=== PATIENT | female | born 1940 | race Caucasian/White ===

== ENCOUNTER 2016-06-13 16:43 | Inpatient (IN) | payer OTHER ==
[2016-06-13 18:19] LABS: MANUAL DIFF NEEDED? NO
[2016-06-13 18:21] LABS: BASO% 0.3 % (0.0-0.8); EOS# 0.29 X1000 (0.0-0.7); EOS% 1.9 % (0.0-10.0); HEMATOCRIT 46.8 % (37.0-47.0); HEMOGLOBIN 15.7 g/dL (12.0-16.0); IMM GRAN# 0.13 X1000 (0.0-0.04); IMM GRAN% 0.8 % (0.0-0.5); LYMPH% 23.7 % (20.5-51.1); MCH 29.7 PG (27-31); MCHC 33.5 g/dL (33-37); MCV 88.6 FL (81-99); MONO# 2.14 X1000 (0.11-0.59); MONO% 13.7 % (1.7-9.3); MPV 10.8 FL (7.4-10.4); NEUT% 59.6 % (42.2-75.2); PLT 180 X1000 (130-400); RBC 5.28 XMIL (4.2-5.4)
[2016-06-13 18:45] LABS: AGAP 13; ALBUMIN 4.3 g/dL (3.5-5.0); ALKALINE PHOSPHATASE 113 U/L (32-104); BUN 23 mg/dL (8-22); CALCIUM 10.2 mg/dL (8.8-10.2); CHLORIDE 99 mmol/L (98-107); COSMO 276; GOT 130 U/L (10-30); GPT 137 U/L (10-36); POTASSIUM 4.1 mmol/L (3.5-5.1); SODIUM 136 mmol/L (136-145); TCO2 25 mmol/L (25-35); TOTAL PROTEIN 8.1 g/dL (6.3-8.3)
[2016-06-13] MEDS ORDERED: APRESOLINE IV PRN (21:06)
[2016-06-13] MEDS ORDERED: TYLENOL PO ONE (22:40)
[2016-06-13] MEDS ORDERED: TUMS PO ONE (22:40)
[2016-06-13] MEDS ORDERED: ZOFRAN IV PRN (22:47)
[2016-06-13] MEDS ORDERED: NS 1,000 ML IV SCH (23:00)
[2016-06-13] MEDS: TYLENOL PO PRN (23:04)
[2016-06-13] MEDS ORDERED: MOTRIN PO PRN (23:11)
--- NOTE | 2016-06-14 00:37 | HISTORY AND PHYSICAL ---
CHIEF COMPLAINT: Shortness of breath, cough, malaise. HISTORY OF PRESENT ILLNESS: This is a 76-year-old female, who came in for direct admit today. She has been sick for about a week. She has a cough, does not feel well, poor appetite and nausea. She came in for evaluation, was seen last week and treated for bronchitis pneumonia with antibiotics and steroids, and she has not done well. Steroids have caused a lot of discomfort and all kinds issues there. She came back in today for re-evaluation, was not improved, felt to have a possible pneumonia, and was directly admitted for failing outpatient therapy for pneumonia. PAST MEDICAL HISTORY: Hypertension, otherwise negative. PAST SURGICAL HISTORY: 1. Total hip replacement x2. 2. Appendectomy. 3. Hysterectomy. FAMILY HISTORY: Reviewed noncontributory. SOCIAL HISTORY: No tobacco or ethanol. ALLERGIES: Toradol. MEDICATIONS: She is just on tramadol and Prilosec. PHYSICAL EXAMINATION: VITAL SIGNS: Blood pressure 190/88, heart rate of 103, respiratory rate of 21, temperature 98.7, 98% on room air. GENERAL: A well-developed female, appears ill, uncomfortable. NECK: Supple. CARDIOVASCULAR: Regular rate and rhythm. No murmurs, gallops, or rubs. PULMONARY: Bilateral breath sounds. Clear to auscultation. No wheezes. GI: Abdomen was soft, nontender, nondistended. Bowel sounds are positive. EXTREMITIES: No clubbing or cyanosis. LYMPHATICS: No peripheral edema. NEUROLOGICAL: Nonfocal. LABORATORY DATA: White count of 15,000. Chemistry showed a BUN and creatinine of 23 and 0.9, with an elevated AST and ALT of 130 and 137. PROBLEM LIST: 1. Presumed pneumonia, versus bronchitis. We will continue treatment with empiric Levaquin, breathing treatments as needed. Follow up on chest x-ray results tomorrow. 2. Hypertension. We will initiate Cozaar and follow. Fairly uncontrolled currently. 3. Elevated liver enzymes, unclear source. We will continue to monitor that. She does not clearly have abdominal pain, but she does not feel well generally speaking. 4. If unimproved liver functions, we will consider right upper quadrant ultrasound.
[2016-06-14] MEDS: LEVAQUIN 750 MG/D5W 150 ML IV SCH ×2 (01:08→23:39)
[2016-06-14] MEDS ORDERED: ROBITUSSIN PO ONE (04:55)
[2016-06-14] MEDS: PRILOSEC PO SCH ×2 (05:40→06:20)
[2016-06-14] MEDS: TYLENOL PO PRN (05:40)
[2016-06-14 06:15] LABS: HEMATOCRIT 44.3 % (37.0-47.0); MCH 30.1 PG (27-31); MCHC 33.9 g/dL (33-37); MCV 88.8 FL (81-99); MPV 11.5 FL (7.4-10.4); RBC 4.99 XMIL (4.2-5.4)
[2016-06-14 06:30] LABS: CALCIUM 9.8 mg/dL (8.8-10.2)
[2016-06-14 06:36] LABS: ALBUMIN 3.7 g/dL (3.5-5.0); ALKALINE PHOSPHATASE 92 U/L (32-104); DIRECT BILIRUBIN < 0.20 mg/dL (0.00-0.20); GOT 102 U/L (10-30); GPT 113 U/L (10-36); TOTAL PROTEIN 6.9 g/dL (6.3-8.3)
--- NOTE | 2016-06-14 08:52 | Diag Imaging Result Document ---
PROCEDURE NAME: CHEST-2 VIEWS - 06/13/2016 CHEST, TWO VIEWS: INDICATION: Possible pneumonia. COMPARISON: 06/04/2014. FINDINGS: There is cardiomegaly. There is a stable pulmonary nodule, right lower lung zone. The pulmonary vasculature is not congested. No acute infiltrate or effusion is identified. there is a significant kyphosis with vertebral body compression fractures again noted. IMPRESSION: 1. Cardiomegaly. 2. Evidence of previous granulomatous infection. 3. Stable right lower lung zone pulmonary nodule.
[2016-06-14] MEDS ORDERED: COZAAR PO SCH (09:00)
[2016-06-14] MEDS ORDERED: ULTRAM PO SCH (09:00)
[2016-06-14 14:12] LABS: URINE CULTURE PL NEEDED? NO; URINE SOURCE CLEAN CATCH
[2016-06-14 14:24] LABS: BILIRUBIN URINE NEGATIVE (NEGATIVE); BLOOD URINE TRACE (NEGATIVE); CLARITY CLEAR (CLEAR); COLOR YELLOW; GLUCOSE URINE NEGATIVE (NEGATIVE); LEUKOCYTES URINE NEGATIVE (NEGATIVE); NITRITE URINE NEGATIVE (NEGATIVE); PROTEIN URINE NEGATIVE (NEGATIVE); SP GRAVITY URINE 1.015; UROBILINOGEN URINE NORMAL
[2016-06-14 14:25] LABS: URINE EPITHELIAL CELLS <10 /HPF (<10); URINE RBC <10 /HPF (<10); URINE WBC <10 /HPF (<10)
[2016-06-14] MEDS ORDERED: NS 500 ML IV SCH (19:00)
--- NOTE | 2016-06-14 21:17 | PROGRESS NOTE ---
[facility]
[2016-06-14] MEDS ORDERED: BLISTEX MEDICATED BERRY LIP BALM TOP PRN (23:47)
[2016-06-15] MEDS: DUONEB (A & A) INH PRN ×3 (00:36→14:47)
[2016-06-15] MEDS: PRILOSEC PO SCH (06:01)
[2016-06-15 06:20] LABS: HEMATOCRIT 44.4 % (37.0-47.0); HEMOGLOBIN 14.7 g/dL (12.0-16.0); MCH 29.6 PG (27-31); MCHC 33.1 g/dL (33-37); MCV 89.5 FL (81-99); MPV 11.4 FL (7.4-10.4); RBC 4.96 XMIL (4.2-5.4)
[2016-06-15 06:35] LABS: ALBUMIN 3.7 g/dL (3.5-5.0); CALCIUM 9.3 mg/dL (8.8-10.2); MAGNESIUM 1.7 mg/dL (1.5-2.7); POTASSIUM 4.1 mmol/L (3.5-5.1); TOTAL BILIRUBIN 0.5 mg/dL (0.20-1.00); TOTAL PROTEIN 6.9 g/dL (6.3-8.3)
--- NOTE | 2016-06-15 08:02 | PROGRESS NOTE ---
DATE: 06/15/2016 SUBJECTIVE: Patient states she is feeling better. Still did not sleeping well. Has been getting out of bed a little bit better. Her tiredness and fatigue are a little bit better. Asking to go home. OBJECTIVE: Vital signs: Temperature 98 degrees, pulse 103, respiratory rate 18, BP 141/71, saturation 100% on room air. General: Patient is well-developed, well-nourished. Currently in no respiratory distress. She is awake and alert. Neck: Supple. Abdomen: Soft, nondistended. Extremities: Moves all extremities. LABS: Reviewed. WBC is 13, AST 73, ALT 99. ASSESSMENT: 1. Acute hepatitis, improving. We will check an abdominal ultrasound. 2. Hypertension. Will add Toprol to her Cozaar. 3. Supraventricular tachycardia. Add Toprol. PLAN: If her abdominal ultrasound is better and she is able to ambulate, we will discharge home later this afternoon.
--- NOTE | 2016-06-15 08:03 | PROGRESS NOTE ---
DATE: 06/14/2016 SUBJECTIVE: The patient states she is hurting all over. Did not sleep well. Denies any focal tenderness. States that she is tired and fatigued. Having difficulty getting out of bed. Describes a poor appetite. Denies any current cough or congestion. PHYSICAL EXAMINATION: Vital Signs: Temperature 98, pulse 115-96, respiratory rate 20, BP 159/75. General: Patient is a well-developed female who is currently in no respiratory distress. She is awake, alert. Neck: Supple. CV: Regular rate. Chest: Clear. Abdomen: Soft. Extremities: Moves all extremities. LABS: Reviewed. ASSESSMENT: 1. Leukocytosis. Continues to improve. White count currently 12. 2. Hepatitis of uncertain etiology. 3. Pneumonia. Continue antibiotics. 4. Hypertension. We will add Cozaar.
[2016-06-15 09:52] LABS: HEPATITIS PROFILE ACUTE SEE COMMENTS (())
[2016-06-15] MEDS: COZAAR PO SCH ×2 (11:29→11:43)
[2016-06-15] MEDS: TOPROL XL PO SCH ×2 (11:31→11:42)
[2016-06-15] MEDS: TYLENOL PO PRN (14:14)
[2016-06-15 15:50] VITALS: BP 139/60
--- NOTE | 2016-06-15 15:54 | Diag Imaging Result Document ---
PROCEDURE NAME: US ABDOMEN-COMPLETE - 06/15/2016 COMPLETE ABDOMINAL ULTRASOUND: COMPARISON: None available. FINDINGS: The gallbladder appears normal with no stones, wall thickening, or pericholecystic fluid. The common bile duct is normal in diameter. Sonographic Cobian's sign was reported to be negative. The liver appears diffusely echogenic suggesting hepatic steatosis. Portal venous flow is hepatopetal. No discrete hepatic mass is identified. The liver is normal in size. The spleen, aorta, and IVC are grossly unremarkable. There is nonspecific mild heterogeneity involving the pancreas, but there is no surrounding fluid collection and no discrete pancreatic mass is identified. The kidneys are grossly unremarkable. IMPRESSION: 1. Suggestion of hepatic steatosis. 2. Nonspecific mild heterogeneity of the pancreas as described.
--- NOTE | 2016-06-15 16:47 | DISCHARGE SUMMARY ---
ADMISSION DIAGNOSES: 1. Pneumonia versus bronchitis. 2. Hypertension. 3. Elevated liver enzymes with an unclear source. DISCHARGE DIAGNOSES: 1. Pneumonia. 2. An acute hepatitis, improved. 3. Hypertension. 4. Supraventricular tachycardia. SUMMARY OF FINDINGS: This is a 76-year-old female, who presented to [facility] with complaints of feeling sick for about a week. She was sent as a direct admit from her primary care physician's office. Having a cough, poor appetite and nausea. She was seen last week by her primary care physician and treated for a bronchitis pneumonia with antibiotics and steroids, but continued to not feel well. Came back on the day of admission for re-evaluation and, due to the failed outpatient treatment, it was felt that she needed treatment for pneumonia inpatient. She was admitted. Placed on Levaquin and DuoNebs. She has had some elevation in her heart rate most likely from the DuoNebs and her blood pressure has been slightly elevated, so we added a Toprol 25 mg p.o. daily. Her white blood cell count is 13.12 today. She has remained afebrile for greater than 24 hours. She had some elevation in her liver functions; they have trended down, and we did an abdominal ultrasound today that showed suggestion of hepatic steatosis and a nonspecific mild heterogeneity of the pancreas as described, but it is felt that she can safely be discharged home. She has ambulated small distances in the room without any difficulty. DISCHARGE MEDICATIONS: She will be given a prescription for Levaquin 750 mg p.o. daily for 7 days no refills, and a prescription for the Toprol 25 mg p.o. daily #30 with 2 refills. She will also continue her home medications of Prilosec 20 mg daily, calcium 1000 mg p.o. daily, multivitamin p.o. daily, and tramadol 50 mg p.o. q. 8 hours p.r.n. FOLLOWUP: She will follow up with her primary care physician in 1-2 weeks. All discharge instructions have been reviewed with the patient. She verbalized understanding. TIME SPENT: 35 minute discharge. Dictated by JAVI Salas for Ming Boyd MD
== END 2016-06-15 18:59 | disposition home or self-care (01) | DRG 194 ==
LOC: P.ED 16:43 → OBSVTOIN 18:46 → P.MEDSURG 18:46
PROVIDERS: ATTEND Family Medicine
DX: J18.9 Pneumonia, unspecified organism (principal); B17.9 Acute viral hepatitis, unspecified; I47.1 Supraventricular tachycardia; I10 Essential (primary) hypertension; Z96.643 Presence of artificial hip joint, bilateral; Z79.899 Other long term (current) drug therapy
CPT/HCPCS: 36415; 71020; 76700; 80048; 80053; 80074; 80076; 81001; 83735; 85025; 85027; 87040; 94640; 94761; 99285; J0360; J7030

== ENCOUNTER 2018-07-20 22:29 | Inpatient (IN) ==
[2018-07-20] MEDS ORDERED: ZOFRAN IV ONE (23:40)
[2018-07-20] MEDS ORDERED: NS 1,000 ML IV ONE (23:40)
[2018-07-21 01:30] LABS: BASO# 0.07 X1000 (0.0-0.2); BASO% 0.5 % (0.0-0.8); EOS# 0.28 X1000 (0.0-0.7); EOS% 1.9 % (0.0-10.0); HEMATOCRIT 48.8 % (37.0-47.0); IMM GRAN# 0.03 X1000 (0.0-0.04); IMM GRAN% 0.2 % (0.0-0.5); LYMPH% 24.7 % (20.5-51.1); MCH 29.4 PG (27-31); MCHC 32.8 g/dL (33-37); MCV 89.7 FL (81-99); MONO# 1.44 X1000 (0.11-0.59); MONO% 9.6 % (1.7-9.3); MPV 11.8 FL (7.4-10.4); NEUT# 9.49 X1000 (1.4-6.5); NEUT% 63.1 % (42.2-75.2); PLT 183 X1000 (130-400); RBC 5.44 XMIL (4.2-5.4); WBC 15.01 X1000 (4.8-10.8)
[2018-07-21 01:57] LABS: AGAP 18; BUN 15 mg/dL (8-22); CALCIUM 9.2 mg/dL (8.8-10.2); CHLORIDE 100 mmol/L (98-107); COSMO 279; CREATININE 0.8 mg/dL (0.5-0.9); ESTIMATED GFR > 60; GLUCOSE 117 mg/dL (70-104); POTASSIUM 4.8 mmol/L (3.5-5.1); SODIUM 139 mmol/L (136-145); TCO2 21 mmol/L (25-35)
[2018-07-21 02:45] LABS: URINE SOURCE CATH
[2018-07-21 02:47] LABS: BILIRUBIN URINE NEGATIVE (NEGATIVE); BLOOD URINE NEGATIVE (NEGATIVE); COLOR YELLOW; GLUCOSE URINE NEGATIVE (NEGATIVE); KETONE URINE NEGATIVE (NEGATIVE); LEUKOCYTES URINE NEGATIVE (NEGATIVE); NITRITE URINE NEGATIVE (NEGATIVE); PH URINE 6.5; PROTEIN URINE TRACE mg/dL (NEGATIVE); SP GRAVITY URINE 1.002; TURBIDITY URINE CLEAR (CLEAR); UROBILINOGEN URINE NORMAL (NORMAL)
[2018-07-21 02:49] LABS: UR EPITHELIAL CELLS <10 /HPF (<10); URINE BACTERIA NEGATIVE /HPF; URINE RBC <10 /HPF (<10); URINE WBC <10 /HPF (<10)
[2018-07-21] MEDS ORDERED: ROCEPHIN 1 GM in NS 50 ML IV ONE (03:08)
[2018-07-21] MEDS ORDERED: MORPHINE IV ONE ×2 (03:41→04:59)
[2018-07-21] MEDS ORDERED: MORPHINE ONE (03:44)
[2018-07-21] MEDS ORDERED: ASPIRIN EC PO ONE (04:27)
[2018-07-21] MEDS ORDERED: ZOFRAN IV PRN (05:03)
[2018-07-21] MEDS ORDERED: CATAPRES PO PRN (05:03)
[2018-07-21] MEDS ORDERED: OXY IR PO PRN (05:03)
[2018-07-21] MEDS ORDERED: MORPHINE IV PRN (05:03)
[2018-07-21] MEDS: TYLENOL PO SCH ×3 (05:52→20:49)
[2018-07-21] MEDS: NS 1,000 ML IV SCH ×2 (05:53→13:37)
[2018-07-21] MEDS: DUONEB (A & A) INH SCH ×3 (07:38→22:42)
--- NOTE | 2018-07-21 08:22 | Diag Imaging Result Doc PS360 ---
HIP 1 VIEW LEFT - 07/21/2018 INDICATION: left hip pain TECHNIQUE: COMPARISON: 12/21/2017 FINDINGS: Stable left total hip arthroplasty. Alignment is anatomic. No hardware fracture or loosening. Stable old deformities of the left pubic rami. IMPRESSION: No acute disease or change from prior. Electronically signed by Enrique Mckeon 07/21/2018 8:19 AM
--- NOTE | 2018-07-21 08:31 | Diag Imaging Result Doc PS360 ---
CHEST-PORTABLE - 07/21/2018 INDICATION: elevated WBC COMPARISON: 07/05/2018 FINDINGS: There are stable surgical sutures in the right lung base. No infiltrates or edema. Heart size and pulmonary vascularity is normal. IMPRESSION: No acute disease. Electronically signed by Enrique Mckeon 07/21/2018 8:29 AM
--- NOTE | 2018-07-21 08:43 | Diag Imaging Result Doc PS360 ---
SHOULDER 1 VIEW LEFT - 07/20/2018 INDICATION: fall TECHNIQUE: COMPARISON: None FINDINGS: There is no obvious fracture or dislocation. IMPRESSION: No obvious fracture or dislocation. Electronically signed by Enrique Mckeon 07/21/2018 8:40 AM
--- NOTE | 2018-07-21 09:03 | Diag Imaging Result Doc PS360 ---
CT HEAD/C-SPINE W/O CONTRAST - 07/20/2018 INDICATION: fall COMPARISON: None FINDINGS: Head CT: The ventricles and sulci are normal in size and contour. No intracranial mass or hemorrhage. There is mild periventricular white matter chronic microvascular disease. The skull is intact. There is some mild sinusitis of the right sphenoid sinus. Cervical spine: Alignment is anatomic. Vertebral body heights and intervertebral disc spaces are preserved. There is extensive facet degeneration. No central canal stenosis. No fracture or subluxation. IMPRESSION: No acute injury. This exam was performed using automated exposure control, adjustment of mA or kV according to patient size, and/or use of iterative reconstruction technique Electronically signed by Enrique Mckeon 07/21/2018 9:01 AM
--- NOTE | 2018-07-21 09:10 | HISTORY AND PHYSICAL ---
Patient of Dr. David Hartmann, Oncologist in [place]. Patient of JAVI Alcala REASON FOR ADMISSION: Unexplained fall last night. HISTORY OF PRESENT ILLNESS: Ms. Vielka Romero is an 78-year-old woman with diagnosed unresectable right lung cancer, COPD, peripheral arterial disease, hypertension, who reports falling onto the floor with no warning. She was brushing her teeth and said that she just found herself lying on her left side on the floor. She managed to crawl to the phone and call family members who in turn called EMS. She denies any prodromal symptoms, i.e., palpitations, chest pain, shortness of breath, headache, visual problems. Her current complaint at this point in time is pain on her left shoulder and left hip. Her [id number] who is at bedside says she has noticed that her sister may be weaker on her left side regardless of the pain that she is experiencing. She did not notice any slurred speech or facial drooping when she got to the house. The patient reports that she had urinated on herself. REVIEW OF SYSTEMS: The patient admits to having worsening shortness of breath over the last 1 year since her diagnosis of lung cancer. She also has chronic constipation and her yrtrqo-jw-eve reports that her short-term memory has slowly been getting progressively worse over the last 1 year. Otherwise, the patient denies any dysuria, any new focal neurological complaints. No fever but she has a chronic cough that is nonproductive. She states that chronic cough started when she underwent bronchoscopy to get a tissue biopsy of the mass in her lung. The patient is barely able to stand. We do not know if she is weak or it is because of pain. Otherwise 12-system review was done. Positive findings per HPI. ALLERGIES: Prednisone and Toradol. HOME MEDICATIONS: Her medication list is pending reconciliation. PAST MEDICAL HISTORY: The aforementioned lung cancer. She was seen in the ER 2 weeks ago for chest pain and shortness of breath and a CTA of the chest was done which showed no PE at that time. It did show the lung mass. FAMILY HISTORY: Notable for diabetes, COPD, stroke in first-degree relatives. No heart disease. SOCIAL HISTORY: She lives alone. She does not smoke or do illicit drugs. LABORATORY DATA: White count 15,000. Hemoglobin and hematocrit 16 and 48, platelets 183,000 with normal differential. BUN 15, creatinine 0.8, glucose 117. Troponin is negative. Urinalysis is essentially benign; specific gravity is 1.002. Chest film does show tiny right lower lobe infiltrate. Head CT reviewed by me shows no overt mass effect or area of infarction or bleed. Hip x-ray does not show any dislocation or fracture of the left prosthesis. Right shoulder x-ray shows no dislocation or fracture of the left humeral head. PHYSICAL EXAMINATION: VITAL SIGNS: Initial blood pressure was 126/96. Current blood pressure is 220/110. Respiratory rate is 15. Temperature is 98. Pulse is 100. Saturation is 100% on room air. GENERAL: Elderly woman who is in acute distress with pain in her back and left side. She is alert and oriented to person, place and time with very anxious affect. Mood appears to be normal. She is hard of hearing on the left side. HEENT: Head is otherwise normocephalic and atraumatic. Eyes: PERRL. EOMI. She is anicteric and not pale. ENT and oropharynx examination grossly normal except for mild cyanotic changes in her lips. NECK: Supple. No JVD, carotid bruits, thyromegaly. CHEST: Decreased air entry in both lung judd. CARDIOVASCULAR: First and second heart sounds heard. No gallops, murmurs or rubs. Rhythm is regular. ABDOMEN: Protuberant and soft. No focused tenderness. No mass or megaly. Bowel sounds are hypoactive. RECTAL: No examination at this time. EXTREMITIES: The patient has good volume pulse, regular and symmetrical in all extremities distally. No edema. No peripheral cyanosis. Her left lower extremity seems to be internally rotated but not shortened. NEUROLOGIC: The patient is able to abduct shoulder to about 90 degrees maximum. She is barely able to flex her hip beyond 30 degrees. She attributes these limited range of motions to pain in these joints, not weakness. Cranial nerves II-XII are grossly intact. Speech appears to be fluent. SKIN: Intact with no breakdown, lesions or erythema. Turgor appears to be good. MUSCULOSKELETAL: Difficult to assess on the left side due to patient's pain. She has slight kyphosis of her thoracic spinal column. ASSESSMENT: 1. Syncope versus cerebrovascular accident versus metastatic brain lesion. 2. Lung cancer. 3. Leukocytosis, probably reactive. 4. Hypertension. 5. Chronic obstructive pulmonary disease. 6. Peripheral arterial disease. 7. Early onset dementia. PLAN: The patient is definitely going to be admitted with goals to be placed in a [facility] facility due to the fact that this patient can barely sit up by herself. Her cognitive function is declining. She is in intractable pain. Imaging studies to rule out metastatic brain lesion, i.e., the MRI and a possible CDA. Early CDA will be ordered. The patient cannot tell us how she got to the floor and this is the reason why I am a little worried about her situation. She is not pretty convinced that she passed out at all. The patient will be treated symptomatically regarding her pain. She will also be started on a bowel regimen to prevent constipation. DVT prophylaxis will be instituted. Depending on what her MRI shows, further modification of her treatment will be instituted. She will be on electrical machine builder to evaluate for possible arrhythmias causing this event. For some reason EKG was ordered but has not been taken at this point in time, although her rhythm was normal. The patient's blood pressure is elevated. I do not know if it due to her being in anxious or in pain. It is a little worrisome for possibility of a cerebrovascular accident if it remains high. cc: Yesika Lawson MD
[2018-07-21] MEDS: LOVENOX SUBQ SCH (09:29)
[2018-07-21] MEDS: MIRALAX PO SCH ×3 (09:29→20:49)
--- NOTE | 2018-07-21 12:17 | PROGRESS NOTE ---
DATE: 07/21/2018 SUBJECTIVE: This morning, Ms. Neville refers to be fairly okay, very fluent in speech. Occasionally, she does exhibit signs of memory gaps. She came in complaining that she is not able to move her left side. Briefly, Ms. Neville got admitted early this morning. She thinks she might have probably been brushing her teeth last night when she just forgot what happened to her. She found herself on the floor and tried crawling to her bedside and she was able to call her brother 1st and family members came after a couple of minutes to assist her. This morning she does refer that she is tired. OBJECTIVE: Vital signs: Blood pressure is 188/77, pulse is 88, respirations 16, temperature 97.3 degrees. General: Ms. Neville is an 78-year-old elderly female, extremely nice. She is in bed, no distress, mucosa is pink, slightly dry. Anicteric and acyanotic. Neck: Supple. No JVD and no carotid bruit. Respiratory System: There is good air entry bilaterally. No crepitations. No rhonchi. Cardiovascular: Regular rate and rhythm. No murmurs, no rubs, no gallops. Abdomen: Soft, nontender. Bowel sounds present. Extremities: No pedal edema. Distal pulses are present. CASE FITTER: Patient is awake, alert, oriented to person, but disoriented to place and time. Speech is fluent. She does have issues with immediate memory. Power is about 5/5 on the right side and it is about 3/5 on the left side, both upper and lower extremities. Plantar reflexes are both downward going. LABORATORY DATA: WBC is 15.01, hemoglobin is 16, platelet count of 183,000. Chemistry is reviewed, unremarkable. DIAGNOSTIC DATA: Initial CT scan of the head and cervical spine showed no acute injury. Left shoulder x-ray showed no obvious fracture or dislocation. A chest x-ray shows no acute abnormality. A hip showed no acute problem. I do not see any EKG. ASSESSMENT: 1. 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 We will do MRI and a complete stroke workup hopefully Sunday. We will also get Neurology to see her. I have ordered a lipid level and will start the patient on low-dose aspirin and statin. 2. Clinical volume depletion with hemoconcentration on labs. The patient is on IV fluids. We will continue that. 3. History of right lung cancer. Patient is currently not on any adjuvant therapy. She has appointment to follow up with her oncologist on the of next month. 4. History of COPD, currently not in exacerbation. 5. 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 6. Hypertension. For now, we will allow for permissive hypertension in the face of suspected CVA. cc: Bakari Winslow MD
[2018-07-21] MEDS: CRESTOR PO SCH (13:36)
--- NOTE | 2018-07-21 17:06 | ECHO REPORT ---
ORDER DATE: 07/21/2018 ECHOCARDIOGRAPHIC MEASUREMENTS: 1. Interventricular septum 1.3, left ventricular posterior wall 1.2, diastolic diameter 4, left ventricular systolic diameter 2.1, left atrium 3.6, aorta 2.8. 2. There is mild left atrial enlargement. 3. Normal left ventricular cavity size. Estimated ejection fraction of 65 to 70%. There is hyperdynamic systolic function. There is diastolic dysfunction. 4. Anterior mitral valve leaflet is normal, posterior mitral valve leaflet has restricted motion with moderate mitral annular calcification. 5. Aortic valve leaflets are trileaflet, sclerosed. 6. Tricuspid valve was normal. 7. There is no aortic stenosis. There is aortic sclerosis associated with mild aortic regurgitation. 8. There is mild mitral regurgitation. 9. There is mild tricuspid regurgitation. Peak velocity across the tricuspid valve was 2.4 m/sec. 10. There is no pericardial effusion or obvious intracardiac mass or thrombus seen. 11. There is left atrial enlargement. 12. Peak inflow velocity across the mitral valve was 1.2 m/sec. There is mild restriction of mitral valve movement, however there is no obvious stenosis noted. cc: MD Bakari Casillas MD
--- NOTE | 2018-07-22 00:51 | PROVIDER DOCUMENTATION ---
This chart was entered by Alicja Moss Scribe, acting as scribe for Saturnino Ayers MD. HPI-General Adult - General Chief Complaint: Fall Stated Complaint: fall Time Seen by Provider: 07/20/18 23:10 Source: patient, family Allergies/Adverse Reactions: Patient Allergies Allergy/AdvReac Type Severity Reaction Status Date / Time ketorolac tromethamine * Allergy NAUSEA/VOMI Verified 07/21/18 05:03 [From Toradol] TING prednisone AdvReac Unknown Verified 07/21/18 05:03 Home Medications: Home Medication List Medication Instructions Recorded Confirmed Last Taken Type Gabapentin 100 mg PO TID 07/21/18 07/21/18 Unknown History Nitrofurantoin Macrocrystal 100 mg PO BID 07/21/18 07/21/18 Unknown History [Nitrofurantoin] Tramadol [Ultram] 50 mg PO TID 07/21/18 07/21/18 Unknown History - History of Present Illness -Gen Adult Nature of Presenting Problems: 78 yof presents to ED by EMS c/o fall at home. Pt denies hitting head or losing consciousness. Pt has hx of lung cancer and HTN. Review of Systems - Adult - REVIEW OF SYSTEMS - ADULT Constitutional: denies: chills, fever Eyes: reports: no symptoms reported Ears, Nose, Mouth & Throat: reports: no symptoms reported Cardiovascular: reports: no symptoms reported Respiratory: reports: no symptoms reported Gastrointestinal: reports: no symptoms reported Genitourinary: reports: no symptoms reported Musculoskeletal: reports: see HPI, joint pain (left shoulder) Integumentary: reports: no symptoms reported Neurological: reports: no symptoms reported Psychiatric: reports: no symptoms reported Allergic/Immunologic: reports: no symptoms reported Past History - Adult - PAST MEDICAL HISTORY-ADULT Review of Records: reports: Old Records Reviewed, Nursing Assessment Review, Medications Reviewed Major Childhood Illnesses: reports: denies history Cardiovascular: reports: HTN Respiratory: reports: cancer Gastrointestinal: reports: denies history Obstetrical/Gynecological: reports: denies history Genitourinary: reports: denies history Musculoskeletal: reports: arthritis Neurological: reports: denies history Endocrine/Immune: reports: denies history Other Conditions: reports: denies history - PRIOR SURGERIES/PROCEDURES Surgical/Procedure History: reports: appendectomy, cholecystectomy, tonsillectomy, joint replacement (total hip) - PRIOR HOSPITALIZATIONS Prior Hospitalizations: reports: none - IMMUNIZATION STATUS Childhood Immunizations: See Nurse Assessment Flu Vaccine: See Nurse Assessment - FAMILY HISTORY Family History: reviewed, not pertinent - SOCIAL HISTORY Smoking: quit greater than 1 year Physical Exam-General - PHYSICAL EXAM-ADULT Initial Vital Signs Reviewed: Yes - CONSTITUTIONAL General Appearance: alert, no apparent distress, other (unable to sit up herself in the bed without help.) - EYES Eyes: PERRL/EOMI, pink conjunctivae - HEAD, EARS, NOSE, MOUTH & THROAT HENMT: normocephalic/atraumatic, other (slightly dry mucus membranes). negative : moist mucous membranes - NECK Neck: non-tender, full range of motion - RESPIRATORY Respiratory: chest non-tender, lungs clear, normal breath sounds. negative: crackles, rales, rhonchi - CARDIOVASCULAR Cardiovascular: normal peripheral pulses, regular rate, rhythm, no edema. negative: bradycardia, tachycardia - GASTROINTESTINAL (ABDOMEN) Abdominal Exam: normal bowel sounds, non tender, soft. negative: rigid, tenderness - MUSCULOSKELETAL Back Exam: normal inspection, no vertebral tenderness Extremity: normal capillary refill, other (tender in left shoulder joint) - SKIN Integumentary: normal color, normal turgor, warm/dry - NEUROLOGIC Neurologic: grossly normal. negative: facial droop - PSYCHIATRIC Psych/Mental Status: normal mood/affect, normal thought content, normal thought process, oriented x 3 Progress - PLAN OF CARE/RESULTS Progress/Plan/Lab Results: Orders Category Date Time Status CT HEAD/C-SPINE W/O CONTRAST [CT] Stat Exams 07/20/18 22:39 Taken SHOULDER 1 VIEW LEFT [RAD] Stat Exams 07/20/18 22:39 Taken Result Diagrams: 07/21/18 00:25 07/21/18 00:25 - CT/MRI 1 CT Study: Cervical Spine (no acute cervical spine fracture identified. multilevel bilateral degenerative facet disease.), Head (no acute intracranial hemorrhage or process age related cerebral volume loss right sphenoid sinusitis) Impression: Abnormal - CONSULTS/PCP/HOSPITALIST Notification #1 *Consult/PCP/Hospitalist*: Dr. Lawson Time Discussed: 03:17 Consult Disposition: Admit (accepted.) Departure - Departure Date of Disposition Decision: 07/21/18 Time of Disposition Decision: 03:16 DIAGNOSIS: Weakness Leukocytosis Qualifiers: Leukocytosis type: unspecified Qualified Code(s): D72.829 - Elevated white blood cell count, unspecified Fall Qualifiers: Encounter type: initial encounter Qualified Code(s): W19.XXXA - Unspecified fall, initial encounter Disposition: ADMITTED INPATIENT 09 Certified Medical Emergency: Emergent Condition: Stable - Critical Care Note This patient required my direct & personal management of CC.: No Attestation - Physician/ MAGDALENO Attestation Patient care was provided by Advanced Practice Provider:: No The physician spent face to face time with patient:: Yes Advanced Practice Provider documentation review:: Supervising physician onsite and consulted in the evaluation and care of this patient. The physician did have a face to face encounter with the patient. This chart was documented by the indicated scribe, (Alicja Moss Scribe) and accurately reflects the services I performed and decisions made by me, Saturnino Ayers MD, as attested by the provider's signature.
[2018-07-22] MEDS: TYLENOL PO SCH ×5 (05:11→23:06)
--- NOTE | 2018-07-22 07:10 | EKG Report ---
Test Performed on : 07/21/2018 11:57:11 AM Test Reason : Afib Blood Pressure : / mmHG Vent. Rate : 083 BPM Atrial Rate : 083 BPM P-R Int : 218 ms QRS Dur : 128 ms QT Int : 418 ms P-R-T Axes : 044 096 053 degrees QTc Int : 491 ms Sinus rhythm. with 1st degree AV block. Right bundle branch block Possible Inferior infarct , age undetermined Abnormal ECG When compared with ECG of 05-JUL-2018 12:48, (Unconfirmed) Right bundle branch block is now present Confirmed by Ronald Ashraf MD ([id number]) on 07/22/2018 8:53:41 AM
[2018-07-22 07:22] LABS: CHOLESTEROL 168 mg/dL (0-200); HDL 40 mg/dL (45-65); LDL 106 mg/dL; TRIGLYCERIDES 109 mg/dL (35-135); VLDL 22 mg/dL
[2018-07-22 07:25] LABS: CALCIUM 8.7 mg/dL (8.8-10.2); CREATININE 0.9 mg/dL (0.5-0.9); MAGNESIUM 1.9 mg/dL (1.5-2.7); POTASSIUM 4.6 mmol/L (3.5-5.1)
[2018-07-22] MEDS: DUONEB (A & A) INH SCH ×3 (07:39→23:30)
[2018-07-22 08:21] LABS: BASO# 0.04 X1000 (0.0-0.2); BASO% 0.5 % (0.0-0.8); EOS# 0.37 X1000 (0.0-0.7); EOS% 4.7 % (0.0-10.0); HEMATOCRIT 43.7 % (37.0-47.0); HEMOGLOBIN 14.1 g/dL (12.0-16.0); LYMPH# 2.67 X1000 (1.2-3.4); LYMPH% 33.8 % (20.5-51.1); MCH 29.7 PG (27-31); MCHC 32.3 g/dL (33-37); MCV 92.2 FL (81-99); MONO# 0.64 X1000 (0.11-0.59); MONO% 8.1 % (1.7-9.3); MPV 11.1 FL (7.4-10.4); NEUT# 4.18 X1000 (1.4-6.5); NEUT% 52.9 % (42.2-75.2); PLT 143 X1000 (130-400); RBC 4.74 XMIL (4.2-5.4)
[2018-07-22] MEDS: CRESTOR PO SCH (09:45)
[2018-07-22] MEDS: LOVENOX SUBQ SCH (09:45)
[2018-07-22] MEDS: MIRALAX PO SCH ×2 (09:45→23:08)
[2018-07-22] MEDS: ASPIRIN PO SCH (09:45)
--- NOTE | 2018-07-22 12:45 | PROGRESS NOTE ---
DATE: 07/22/2018 SUBJECTIVE: This morning Ms. Neville refers to be feeling a whole lot better. She was able to sit up. The left side weakness seems remarkably improved. She does have some pain to the left shoulder on mobilization. OBJECTIVE: Vital signs: Blood pressure is 145/104, respiration is 15, pulse is 73, temperature 98.0 degrees. General: Ms. Neville is an 78-year-old female. She was sitting up in a chair, no distress. HEENT: Mucosa is pink and moist. Anicteric. Acyanotic. Neck: Supple. Chest: Clear to auscultation. There were no crepitations and no rhonchi. Cardiovascular: Regular rate and rhythm. No murmurs. No rubs. No gallops. Abdomen: Soft, nontender. Bowel sounds present. Extremities: No pedal edema. 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 She seems to have maybe 4- power in the left side and 5/5 in the right side. She does have some tenderness mobilizing the left shoulder. LABS: WBC is 7.90, hemoglobin is 14.1, platelet count of 143,000. Chemistry is also reviewed; it is unremarkable. The patient is still pending an MRI. Echocardiogram shows an ejection fraction of 65 to 70%, no major valvular abnormality. ASSESSMENT: 1. Left-sided weakness, predominantly the upper extremity, seems to have remarkably improved. It appears that this could have been mainly because of pain to the shoulder. However, will wait on the MRI and go from there. The patient could have also had a TIA. 2. Left shoulder pain, likely due to osteoarthritis. A chest x-ray was unremarkable for any fracture. The patient is continuing physical therapy and Tylenol for pain management. 3. Clinical volume depletion with hemoconcentration on labs, improved. 4. History of right lung cancer. The patient is not on any adjuvant therapy. She has an appointment to follow up with her oncologist on August 29. 5. History of chronic obstructive pulmonary disease. Currently not in exacerbation. 6. Hypertension. Will restart the patient on her home medications today. 7. 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 PLAN: So in general, Ms. Neville looks a whole lot better this morning. The weakness that we picked up yesterday does not seem to be there any longer. There is a mild drift of the left upper extremity when she raises both hands, but it appears that it is more of antalgic position than a true myelopathy. We are pending the MRI and then go from there. The patient will eventually need to go to a rehab, which oncology social work has been consulted. cc: Bakari Winslow MD
--- NOTE | 2018-07-22 16:48 | CONSULTATION ---
DATE OF CONSULTATION: 07/22/2018 REASON FOR CONSULTATION: Question of left side weakness. HISTORY OF PRESENT ILLNESS: This is an 78-year-old right-handed female with history of lung cancer, not receiving treatment. This was diagnosed just over a year ago. She also has peripheral vascular disease and hypertension. She presented late Sunday night after falling without definite loss of consciousness. She reports she was standing in the bathroom brushing her teeth. She walked into her bedroom, and the next thing she knew, she was on the floor. She says if she passed out, it was only for a brief second. She does not recall her body hitting the floor though. She was able to crawl over to her bed, grab her phone and dial a family member and ask for help. EMS was called to the house as well. They arrived and brought to the patient to the hospital. She denies any preceding headache, visual changes, focal neurologic weakness. No dizziness or lightheadedness. No chest pain, shortness of breath or palpitations. She does, however, report intermittent sense of heart beating fast in her chest for the 3 days preceding this fall. She had some pain on her left shoulder and arm upon arrival to the emergency department and was not able to use the arm very well initially, possibly due to the pain. Head CT did not show any acute findings. Lab work showed elevated white count of 15, normalized the subsequent day. She reports "passing out" about 5 years ago while standing outside of her house with her dog at 6:00 a.m. in June. She does not recall whether she had symptoms preceding this event as it was so long ago. No other falls or loss of consciousness events. She has no known history of seizure or stroke. No major head injury. She had been eating and drinking her usual amounts. PAST MEDICAL HISTORY: Lung cancer diagnosed just over a year ago. She has not received treatment for this. COPD, hypertension, peripheral vascular disease. SOCIAL HISTORY: She smoked for about 10 years, quit in her mid 20s. No alcohol or illicits. She lives alone in a town home. She does drive. FAMILY HISTORY: No seizures. Positive stroke. ALLERGIES: Listed to Toradol and prednisone. CURRENT MEDICATIONS: Aspirin 81 mg, Crestor 20 mg. She does report taking a couple of pain medications at home on occasion. REVIEW OF SYSTEMS: A balance of 12 was conducted and is otherwise negative except for that detailed in the HPI. PHYSICAL EXAMINATION: Vital signs: Afebrile. Blood pressure was 126/96 on arrival, current 106/86. Pulse typically 70s to 80s. Respirations 18. Saturation 98% on room air. Ms. Neville is supine in bed with head of bed elevated. She is brushing her teeth when I enter the room. She is awake, alert, fully oriented. Follows simple and complex commands. Left, right and digit distinction preserved. No dysarthria. No language disturbance. Pupils are equal, round and reactive to light. Gaze is conjugate. Extraocular movements are full. Visual jdud intact to direct confrontational testing. Face symmetric with equal activation and facial sensation intact. Tongue is midline. Palate elevates symmetrically. She is hard of hearing. Shoulder shrug is full. No drift. Tone appears equal in the limbs. Power is preserved and equal in the limbs. Sensation is symmetric to light touch, temperature and pinprick in the limbs. Rapid alternating movements symmetric. Finger to nose intact. Reflexes are diminished at the ankles, 1+ at the wrist. No clonus. Plantar response is downgoing. DIAGNOSTIC DATA: Head CT and cervical spine CT showing no acute findings or injury. Head CT was personally reviewed. Echocardiogram showing no obvious mass or thrombus. EF of 65% to 70%. Labs with white count of 15 on admission, normalized the subsequent day. Normal sodium, BUN and creatinine. Triglycerides 109, cholesterol 168, LDL is 106, HDL is 40. ASSESSMENT AND PLAN: Fall with possible loss of consciousness. Question of transient left arm weakness vs limitations related to pain. Agree with MRI of the brain, and would perform with and without contrast given her lung cancer diagnosis. I am going to order a routine EEG as well. Further workup pending test results. Thank you for the consultation. cc: Abimbola Silva MD [facility] CENTERCelestino
[2018-07-23] MEDS ORDERED: TYLENOL PO SCH (05:30)
[2018-07-23] MEDS: TYLENOL PO SCH ×2 (06:36→06:38)
[2018-07-23] MEDS: DUONEB (A & A) INH SCH ×3 (07:38→23:25)
[2018-07-23] MEDS: CRESTOR PO SCH (09:00)
[2018-07-23] MEDS: MIRALAX PO SCH ×2 (09:00→23:03)
[2018-07-23] MEDS: LOVENOX SUBQ SCH (09:00)
[2018-07-23] MEDS: ASPIRIN PO SCH (09:00)
--- NOTE | 2018-07-23 09:29 | Diag Imaging Result Doc PS360 ---
EXAM: MRA BRAIN W/O CONTRAST 07/22/2018 HISTORY: stroke TECHNIQUE: 3-D [id number] SPGR fat sat with MIPS COMMENT: There is apparent high-grade stenosis of both the A1 and M1 segments on the left. The A1 segment may actually be occluded with collateral flow through the anterior communicating artery. There is probable small vessel disease in both middle cerebrals and posterior cerebrals distally. There is no evidence of aneurysm. The distal left internal carotid artery is slightly narrowed before it enters the cranium. There are no previous studies available for comparison. IMPRESSION: Significant stenosis and/or occlusion in the A1 segment of the anterior cerebral on the left and stenosis of the proximal middle cerebral. Some Electronically signed by Dipak Harris 07/23/2018 9:26 AM
--- NOTE | 2018-07-23 09:32 | Diag Imaging Result Doc PS360 ---
EXAM: MRA NECK W/CONT 07/22/2018 HISTORY: stroke TECHNIQUE: 3-D axial [id number]-kz-zywuyl SPGR COMMENT: There is no evidence of significant stenosis in the common carotid arteries on either side. There is slight narrowing of the proximal internal carotid artery on the left side, as well as in the distal internal carotid artery just as it enters the foramen lacerum. IMPRESSION: Stenosis of the proximal left internal carotid artery and the distal cervical internal carotid on the left. Electronically signed by Dipak Harris 07/23/2018 9:29 AM
--- NOTE | 2018-07-23 09:33 | Diag Imaging Result Doc PS360 ---
EXAM: MRI BRAIN W/WO CONTRAST 07/21/2018 HISTORY: R side weaknes h/o lung cancer TECHNIQUE: T1 sagittal, axial, and post gadolinium-enhanced FSPGR axial with coronal reformation, axial flair, T2, DWI and coronal gradient echo. COMMENT: There are numerous foci of increased T2-weighted signal intensity in the periventricular and subcortical white matter. There is a fairly large lacune present in the posterior basal ganglia region on the right. This exhibits some restricted diffusion as well as an area in the subcutaneous ependymal white matter adjacent to the posterior right lateral ventricle. There is no evidence of bleed or abnormal extra-axial fluid collection. There are no previous MRI studies. The post gadolinium images are somewhat degraded by patient motion. There is no evidence of abnormal gadolinium enhancement. IMPRESSION: Extensive chronic ischemic microvascular changes with superimposed acute lacunar infarctions on the right as described. This report was discussed with Georgette on 07/23/2018 at 0930 and was readback. Electronically signed by Dipak Harris 07/23/2018 9:30 AM
--- NOTE | 2018-07-23 17:01 | PROGRESS NOTE ---
DATE: 07/23/2018 SUBJECTIVE: No major overnight events. The patient reports feeling well. OBJECTIVE: Vital Signs: Afebrile. Blood pressure recently 150s to 217 systolic over 60s to 110 diastolic. Pulse 80s to 100. General: Ms. Neville is supine in bed with the head of the bed elevated. She is asleep as I enter the room. She startles as I call her name. She is awake, alert, and oriented. Speech is fluent. She follows simple and complex commands. No language disturbance. No dysarthria. Pupils are equal, round, and reactive. Gaze is conjugate. Ocular movements are full. Face is symmetric with equal activation. Extremities: She has good power in the limbs and that is symmetric. MRI of the brain with and without contrast was personally reviewed. There is an acute lacunar infarct in the right basal ganglia and white matter adjacent to the posterior right lateral ventricle. There is extensive chronic ischemic microvascular changes. No abnormal contrast enhancement. MRA of the brain reporting significant stenosis and/or occlusion in the A1 segment of the anterior cerebral artery on the left as well as stenosis of the proximal MCA on the left. There is also the report of probable small vessel disease of both MCAs and centerless grinding machine adjuster distally. No aneurysm. Neck MRA showed slight narrowing of the proximal left ICA and distal cervical ICA on the left. Routine EEG personally reviewed. Normal. Full report to follow. ASSESSMENT AND PLAN: Acute ischemic infarct in the deep matter on the right. Likely transient left hand or arm weakness early on which has resolved. There may also be some areas of intracranial stenosis as indicated on the MRA report. A CTA may be beneficial. Carotid Dopplers are pending. I think in light of the location of the stroke as well as the stenosis mentioned, low dose aspirin therapy would be indicated for secondary stroke prevention. She will need high potency statin therapy. I would allow for some permissive hypertension over the next day or so. She may ultimately need antihypertensives long-term. cc: Abimbola Silva MD MTDD
--- NOTE | 2018-07-23 17:02 | PROGRESS NOTE ---
DATE: 07/23/2018 SUBJECTIVE: This is a patient of JAVI Gabriel, followed by Dr. David Hartmann, oncologist in [place]. An 78-year-old woman with diagnosis of unresectable right lung cancer, COPD, peripheral artery disease, hypertension. Reports falling on the floor with no warning. She was brushing her teeth and said that she just found herself lying on the left side on the floor. Managed to crawl to the phone, call family members, and EMS. She denies any prodromal symptoms, palpitations, chest pain, shortness of breath, headache, visual problems. She has pain in left shoulder and left hip. Znlmfq-hy-qal came and was at the bedside. She did not notice any slurred speech or facial drooping. So, admitted was syncope versus CVA versus metastatic brain lesion. She has underlying lung cancer. HISTORY: Diagnosed with lung cancer. OBJECTIVE: General: Exam today, she is awake and seems to know she is in the hospital and her surroundings. She understands that we are trying to go to rehab. Vital Signs: Temperature 97.4 degrees, pulse 100, respirations 14. HEENT: Pupils are equal and round. Lungs: Clear in all lung judd. Cardiovascular: Regular rhythm and rate without murmur or S3. Abdomen: Soft. Skin: Warm and dry. Urine output is 2500 mL. ASSESSMENT AND PLAN: 1. Fall, possible loss of consciousness. Questionable transient left arm weakness versus limitations related to pain. MRI of the brain with and without contrast given her history of lung cancer. We are going to order an EEG. MRI of the brain was done on 07/22/2018. Significant stenosis or occlusion of A-1 segment of anterior cerebral on the left. Stenosis of the proximal middle cerebral. MRA of the neck: Stenosis of the proximal left internal carotid artery and distal cervical internal carotid on the left. We will continue physical therapy. Her left shoulder pain is likely osteoarthritis. Her volume depletion seems to be better with fluids. 2. Right lung cancer. The patient is not on any adjuvant therapy. Has appointment to follow with oncologist 08/29/2018. 3. Chronic obstructive pulmonary disease. Currently not in exacerbation. 4. Hypertension. 5. Dementia. Combination of Alzheimer's and vascular dementia. She looks a whole lot better. I think the plan is to try and get her to rehab. There was a mild drift to the left upper extremity when she raises both arms. Appears it is more positional than true myopathy. MRI and MRA do show significant arterial disease. REVIEW OF ORDERS: She is on aspirin 81 mg a day, Lovenox 40 mg subcutaneous q.24 h., MiraLAX 17 g b.i.d., Crestor 20 mg a day. cc: Prashanth Gilliam MD
--- NOTE | 2018-07-23 19:02 | EEG REPORT ---
DATE: 07/22/2018 BACKGROUND INFORMATION/TECHNIQUE: This is a digitally recorded routine EEG with video. HISTORY: This 78-year-old female patient with lung cancer and episode of fall without definite loss of consciousness. She does not recall hitting the floor. EEG is ordered to detect evidence of seizures. EEG FINDINGS: A moderately well formed 8.5 to 9.5 hertz posterior dominant alpha rhythm is seen symmetrically in the occipital regions and attenuates with eye opening. The anterior background at maximal alertness consists of mixed alpha and beta range frequencies. No definite persistent focal slowing. No epileptiform discharges. No seizures. Hyperventilation was not performed. Photic stimulation did not alter the record. The patient becomes drowsy and enters into stage II sleep with qualitatively normal sleep architecture. EKG demonstrates regular intervals. IMPRESSION AND CLINICAL CORRELATION: Normal routine EEG in the awake, drowsy, and sleep states. Of note, a normal EEG does not rule out epilepsy. cc: Abimbola Silva MD
[2018-07-24] MEDS: DUONEB (A & A) INH SCH ×3 (07:40→22:56)
[2018-07-24] MEDS: ASPIRIN PO SCH (09:46)
[2018-07-24] MEDS: CRESTOR PO SCH (09:46)
[2018-07-24] MEDS: LOVENOX SUBQ SCH (09:47)
[2018-07-24] MEDS: MIRALAX PO SCH ×2 (09:47→20:56)
--- NOTE | 2018-07-24 11:34 | PROGRESS NOTE ---
DATE: 07/24/2018 Dr. Silva saw Ms. Neville for initial neurology evaluation. She presented with a history of transient left-sided symptoms. Brain MRI showed evidence of acute right basal ganglia area lacunar infarction. Brain MRA raised questions of mostly left-sided internal carotid and major vessel intracranial stenoses. Echocardiogram did not show source of embolus. Systolic blood pressures have ranged 110s to 190s. Today, she reports an odd feeling in the left hand and adjacent forearm. She cannot describe this precisely. She says it feels "funny." She reports this is similar to the symptoms she had in her left arm on Sunday, apparently when the stroke occurred. She has not noticed left arm weakness, slurred speech, vision disturbance, headache. On exam now, she is awake, alert, attentive, oriented. Speech is not dysarthric. Head and neck are unremarkable. Visual judd are full tested grossly by confrontational finger counting. She has good power in the left hand and arm. She did well with left [id number]-[id number] testing. She reports good proprioception at the left index finger PIP joint. She reports diminished pinprick and light touch appreciation over the left palm compared to the right. IMPRESSION: Predominantly sensory left-sided deficit, consistent with imaging evidence of acute right basal ganglia area lacune. I suspect this is fluctuation in sensory symptoms without new structural lesion but I will order urgent brain CT to make certain there is no bleeding or obvious new ischemic lesion. Later, depending on her clinical course, we might repeat the MRI scan to be more certain we have established baseline. CT angiogram will better evaluate the intracranial circulation and her creatinine is good, so we can get that done now. Further plans will depend on her clinical course and on the CT/CTA reports. Thanks for asking neurology to see Ms. Neville. cc: MD ROHAN Barros III
--- NOTE | 2018-07-24 13:55 | Diag Imaging Result Doc PS360 ---
CT HEAD W/O CONTRAST - 07/24/2018 INDICATION: new left arm numbness COMPARISON: 07/20/2018 FINDINGS: There is a new focus of significant hypodensity in the posterior right basal ganglia involving the posterior limb of the internal capsule. Otherwise stable periventricular white matter chronic microvascular disease. No intracranial mass or hemorrhage. There is mild sinusitis of the right sphenoid sinuses. IMPRESSION: Apparent lacunar infarction at the posterior right basal ganglia extending into the posterior limb of the internal capsule, that has occurred as the prior exam. This exam was performed using automated exposure control, adjustment of mA or kV according to patient size, and/or use of iterative reconstruction technique Electronically signed by Enrique Mckeon 07/24/2018 1:53 PM
--- NOTE | 2018-07-24 14:09 | Diag Imaging Result Doc PS360 ---
CT ANGIOGRAM HEAD - 07/24/2018 INDICATION: acute right infarct,rule out intracranial stenosis TECHNIQUE: Axial CT images were obtained after administering intravenous contrast. Three-dimensional angiographic images were generated. COMPARISON: None FINDINGS: On the right side, there is heavy vascular calcification of the intracranial internal carotid artery. This mainly involves the cavernous and supraclinoid portions. At the supraclinoid internal carotid artery just before the bifurcation there is severe stenosis of about 80% narrowing. The right anterior and middle cerebral arteries are patent. On the left side, there is significant calcified plaque at the distal most extra cranial internal carotid artery, with about 60% stenosis. There is also critical stenosis of the cavernous and supraclinoid internal carotid artery, with about 90% stenosis diffusely. The A1 segment on the left side is essentially occluded, with apparently flow provided by the contralateral side. The proximal middle cerebral artery is also severely narrowed by low flow or noncalcified plaque. This is narrowed by about 75%. There is near complete occlusion of the left vertebral artery inside the cranium. The right vertebral artery demonstrates severe stenosis of about 75%. The basilar artery is patent. The posterior cerebral arteries and the dominant cerebellar arteries are patent. IMPRESSION: Severe cerebrovascular disease. This exam was performed using automated exposure control, adjustment of mA or kV according to patient size, and/or use of iterative reconstruction technique Electronically signed by Enrique Mckeon 07/24/2018 2:06 PM
--- NOTE | 2018-07-24 18:01 | PROGRESS NOTE ---
DATE: 07/24/2018 SUBJECTIVE: Ms. Neville is feeling better and doing a little bit better. OBJECTIVE: Vital signs: She remains afebrile with temperature 98.1 degrees, pulse 110, respirations 18, blood pressure 115/88. HEENT: Pupils are equal and round. Lungs: Clear in all lung judd. Cardiovascular: Regular rhythm and rate without murmur or S3. Abdomen: Soft. Skin: Warm, dry. Output: Urine output is 2600 mL. ASSESSMENT AND PLAN: 1. Predominantly sensory left-sided deficit consistent with imaging evidence of acute right basilar ganglia area lacunar, and Dr. Duomnt feels this is a fluctuation in the sensory symptoms without any new structural lesion so did get a CT scan today apparently lacunar infarction at the posterior right base ganglia extending in the posterior limb of internal capsule and it apparently appears the same as previous exam. 2. She has had a fall with possible loss consciousness, questionable transient left arm weakness versus limitations related to pain. MRI of the brain was done on 07/22/2018. There is significant occlusion at A-1 segment of anterior cerebral on the left, stenosis of the proximal middle cerebral. MRA of the neck: Stenosis of the proximal left internal carotid artery and distal cervical internal carotid on the left. We are going to continue physical therapy. Hopefully, she has a place at [facility]. Hopefully, we can send her in the morning. 3. Right lung cancer, not on any adjuvant therapy. Has appointment to follow oncologist on 08/29/2018. 4. Chronic obstructive pulmonary disease (COPD), currently not in exacerbation. 5. Hypertension. 6. Dementia, combination of Alzheimer's and vascular dementia. We will see if we can get her to rehabilitation tomorrow. She is on aspirin 81 mg a day, Catapres 0.1 mg q.4 h. p.r.n., and she is on MiraLAX 17 g b.i.d., Crestor 20 mg a day. cc: Prashanth Gilliam MD
[2018-07-25] MEDS: DUONEB (A & A) INH SCH ×2 (07:50→15:46)
[2018-07-25] MEDS: ASPIRIN PO SCH (09:33)
[2018-07-25] MEDS: LOVENOX SUBQ SCH (09:33)
[2018-07-25] MEDS: CRESTOR PO SCH (09:33)
[2018-07-25] MEDS: MIRALAX PO SCH (09:33)
--- NOTE | 2018-07-25 11:04 | PROGRESS NOTE ---
DATE: 07/25/2018 Ms. Neville reports the odd feeling in her left arm resolved over a few hours yesterday late morning. She did not ever notice definite motor deficit. Her CT scan shows left basal ganglia area infarction which was not seen on the initial CT but looks to be about the same size as findings on recent MRI scan. CT angiogram shows significant intracranial vascular disease. Systolic blood pressures have ranged 150s to 170s over the last 12 hours. We discussed stroke symptom recrudescence and possibility that fluctuating sensory symptoms might not necessarily indicate new structural ischemic change. To this point, she has not had significant dysesthesia. I told her to notify immediately if she has any motor deficit. She is scheduled for rehabilitation. I think it would be reasonable for her to consider elective outpatient stroke clinic appointment to get another opinion about the intracranial stenoses. That is not urgent. I encouraged her to stay well hydrated and to make sure she takes all of her medicines as directed. I will be glad to see her again as an outpatient, if needed. Thanks for asking Neurology to see Ms. Neville. cc: MD ROHAN Barros III
[2018-07-25] MEDS ORDERED: TUMS PO PRN (12:45)
--- NOTE | 2018-07-25 14:34 | DISCHARGE SUMMARY ---
ADMISSION DATE: 07/21/2018 DISCHARGE DATE: 07/25/2018 HISTORY OF PRESENT ILLNESS: This is a 78-year-old followed by Chani Schaffer who presented on 07/21/2018, unexplained fall the evening before. This is an 78-year-old diagnosed with unresectable right lung cancer, COPD, peripheral arterial disease, hypertension, reports falling on the floor with no warning, brushing her teeth, and said she just found herself lying on the floor. She managed to get the phone and call family members who in turn called EMS. Denies any prodromal symptoms such as palpitations, chest pain, headache, visual problems. Her current complaint was pain in the left shoulder and left hip. Her amnsmi-ib-igs at bedside said she noticed she was weaker on the left side in regards to pain she was experiencing. She did not notice any slurred speech or facial drooping. She presented to the emergency room with admission diagnosis of syncope versus cardiovascular accident versus metastatic brain lesion, underlying lung cancer, leukocytosis, hypertension, chronic obstructive pulmonary disease, peripheral arterial disease, and early-onset dementia. HOSPITAL COURSE: She was admitted to the hospital. Echocardiogram with Doppler was done on 07/21, normal left ventricular size, ejection fraction 65% to 70%. No significant valvular dysfunction. No pericardial effusion. She had an MRI of the brain on 07/21, extensive chronic ischemic microvascular changes with superimposed acute lacunar infarctions on the right. She had an MRA of the brain and neck. MRA of the brain: Significant stenosis, occlusion of the A1 segment of the anterior cerebral on the left and stenosis of the proximal middle cerebral. MRA of the neck: Stenosis of the proximal left internal carotid artery and distal cervical internal carotid on the left. She had an EEG done read by Dr. Silva, normal routine EEG awake, drowsy, and sleep states. Note: Normal EEG does not rule out epilepsy. She had no further events. We repeated a CTA of the head, severe cerebrovascular disease and apparent lacunar infarction of the posterior right basal ganglion extending into the posterior limb of the internal capsule, so predominantly a sensory left-sided deficit consistent with imaging evidence of acute right basal ganglia area lacunar infarction. Suspects this is a fluctuation in sensorium symptoms without new structural lesions. The patient predominantly has left-sided sensory deficits consistent with imaging and right basal ganglia area lacunar infarction, so continue present management. I think she can go to rehab, follow up with her oncologist. DISCHARGE MEDICATIONS: 1. Aspirin 81 mg a day. 2. Tums 500 mg t.i.d. p.r.n. 3. Catapres 0.1 mg p.o. q.4 h. p.r.n. elevated blood pressure. 4. Crestor 20 mg daily. 5. MiraLAX 17 g b.i.d. DISPOSITION: We will get her to rehab today if we can. cc: Prashanth Gilliam MD
[2018-07-25 14:47] VITALS: BP 149/85
[2018-07-25] MEDS ORDERED: LACTULOSE PO ONE (16:39)
--- NOTE | 2018-07-25 17:12 | Diag Imaging Result Doc PS360 ---
EXAM: KUB ABDOMEN HISTORY: constipation TECHNIQUE: Abdomen two views COMPARISON: None. FINDINGS: No free air beneath the diaphragm. There is stool throughout the colon. The bowel loops are not dilated. No organomegaly. Prominent atherosclerosis. Prior orthopedic replacement of each hip. IMPRESSION: Moderate constipation. Electronically signed by Robb Pepe 07/25/2018 5:10 PM
[2018-07-25] MEDS ORDERED: LACTULOSE PO SCH (21:00)
== END 2018-07-25 18:08 | DRG 65 ==
LOC: SUPCPDRO → ED 22:29 → 3N 07-21 04:42 → SUATTDRO 07-21 04:42
PROVIDERS: ATTEND Emergency Medicine
CPT/HCPCS: 51702; 70450; 70496; 70544; 70548; 70553; 71010; 71045; 72125; 73020; 73500; 73501; 74000; 74018; 80048; 80061; 81001; 83735; 84484; 85025; 93005; 93010; 93306; 94640; 94761; 95816; 96361; 96365; 96366; 96375; 97162; 97530; 99285; A9270; A9579; J0696; J1650; J2270; J2405; J7030; Q9967

== ENCOUNTER 2018-11-09 19:03 | Inpatient (IN) ==
--- NOTE | 2018-11-09 20:45 | Diag Imaging Result Doc PS360 ---
XRAY PELVIS W/HIP 2-3VW RT - 11/09/2018 INDICATION: fall with right hip pain TECHNIQUE: Three views COMPARISON: 12/21/2017 FINDINGS: There are stable bilateral total hip replacements. Alignment is anatomic. No hardware fracture or loosening. IMPRESSION: No acute disease or complication. Electronically signed by Enrique Mckeon 11/09/2018 8:43 PM
--- NOTE | 2018-11-09 20:48 | Diag Imaging Result Doc PS360 ---
CT HEAD/C-SPINE W/O CONTRAST - 11/09/2018 INDICATION: fall with impaction of head COMPARISON: 07/24/2018, 07/20/2018 FINDINGS: Head CT: The ventricles and sulci are normal in size and contour. Stable mild periventricular white matter chronic microvascular disease. No intracranial mass or hemorrhage. The skull is intact. The sinuses are grossly clear. Cervical spine: There is stable exaggeration of the normal cervical lordosis. No fracture or subluxation. There is advanced multilevel facet degeneration. There is severe calcified vascular disease of the left vertebral artery. IMPRESSION: No acute injury. No change from prior. This exam was performed using automated exposure control, adjustment of mA or kV according to patient size, and/or use of iterative reconstruction technique Electronically signed by Enrique Mckeon 11/09/2018 8:46 PM
[2018-11-09 20:53] LABS: BASO# 0.04 X1000 (0.0-0.2); BASO% 0.2 % (0.0-0.8); EOS# 0.41 X1000 (0.0-0.7); EOS% 2.5 % (0.0-10.0); HEMATOCRIT 45.9 % (37.0-47.0); HEMOGLOBIN 15.6 g/dL (12.0-16.0); IMM GRAN# 0.13 X1000 (0.0-0.04); IMM GRAN% 0.8 % (0.0-0.5); LYMPH# 2.74 X1000 (1.2-3.4); MCH 30.2 PG (27-31); MCV 88.8 FL (81-99); MONO# 1.12 X1000 (0.11-0.59); MPV 10.5 FL (7.4-10.4); NEUT# 11.64 X1000 (1.4-6.5); NEUT% 72.5 % (42.2-75.2); PLT 170 X1000 (130-400); RBC 5.17 XMIL (4.2-5.4); RDW 13.5 % (11.5-14.5); WBC 16.08 X1000 (4.8-10.8)
[2018-11-09 21:10] LABS: AGAP 14; BUN 16 mg/dL (8-22); CALCIUM 9.7 mg/dL (8.8-10.2); CHLORIDE 101 mmol/L (98-107); COSMO 280; CREATININE 0.7 mg/dL (0.5-0.9); ESTIMATED GFR > 60; GLUCOSE 116 mg/dL (70-104); POTASSIUM 4.6 mmol/L (3.5-5.1); SODIUM 139 mmol/L (136-145); TCO2 24 mmol/L (25-35)
[2018-11-09] MEDS ORDERED: MORPHINE IV ONE (21:26)
--- NOTE | 2018-11-09 22:19 | Diag Imaging Result Doc PS360 ---
CT ANGIOGRM PULMONARY ARTERIES - 11/09/2018 INDICATION: chest pain with known lung ca TECHNIQUE: Axial CT images were obtained after administering intravenous contrast. Coronal MIP images were generated. COMPARISON: 07/05/2018 FINDINGS: There is no pulmonary embolism. There is severe vascular disease of the aorta, coronary arteries, and great vessels. There is critical stenosis of the proximal left subclavian artery which indicates probable subclavian steal syndrome. Stable borderline right hilar and subcarinal lymph nodes, but no significant adenopathy. Upper abdominal images appear unremarkable. Stable nodule in the right middle lobe measuring 2.3 x 2.5 cm. There is some stable adjacent infiltrate or atelectasis at the major fissure. There are moderate degenerative changes of the spine. No acute or suspicious bony lesion. IMPRESSION: Negative for pulmonary embolism. No change from prior. This exam was performed using automated exposure control, adjustment of mA or kV according to patient size, and/or use of iterative reconstruction technique Electronically signed by Enrique Mckeon 11/09/2018 10:17 PM
[2018-11-09 23:29] LABS: URINE SOURCE CLEAN CATCH
[2018-11-09 23:35] LABS: BILIRUBIN URINE NEGATIVE (NEGATIVE); BLOOD URINE TRACE (NEGATIVE); COLOR STRAW; GLUCOSE URINE NEGATIVE (NEGATIVE); KETONE URINE NEGATIVE (NEGATIVE); LEUKOCYTES URINE NEGATIVE (NEGATIVE); NITRITE URINE NEGATIVE (NEGATIVE); PH URINE 6.5; PROTEIN URINE NEGATIVE (NEGATIVE); SP GRAVITY URINE 1.018; TURBIDITY URINE CLEAR (CLEAR); UROBILINOGEN URINE NORMAL (NORMAL)
[2018-11-09 23:36] LABS: UR EPITHELIAL CELLS <10 /HPF (<10); URINE BACTERIA NEGATIVE /HPF; URINE RBC <10 /HPF (<10); URINE WBC <10 /HPF (<10)
--- NOTE | 2018-11-10 00:44 | PROVIDER DOCUMENTATION ---
This chart was entered by Isabelle Monge Scribe, acting as scribe for Genesis Carney MD. HPI-Musculoskeletal Pain/Inj - GENERAL Chief Complaint: Fall Stated Complaint: FALL Time Seen by Provider: 11/09/18 20:11 Source: patient, family - HX OF PRESENT ILLNESS-MUSKULOSKELTAL Nature of Presenting Problem: 78 y/o female presents to ED with R hip pain radiating to R groin onset just joe or to arrival due to fall. Pt reports she fell while trying to pull her blanket from the recliner and stumbled falling onto her hip and abdomen. Pt states she takes 81 mg aspirin daily. Pt also complains of intermittent L sided chest pain onset 3 weeks ago that is worse with inspiration. Pt is alert and oriented. no numbness no tingling no weakness Quality of Pain: reports: sharp Severity in ED: moderate Onset/Duration: just prior to arrival, other (3 weeks ago) Timing: still present Modifying Factors: worse with: movement, palpation Any recent injury?: Yes (fall) Locality of Occurance: Home Similar Symptoms Previously?: No Recently seen or treated by another doctor?: No - FALL INJURY Location of Pain/Injury: reports: lower extremity Pain Radiation: reports: no radiation Reason for Fall: reports: other (fell while trying to pull blanket out of recliner) Symptoms prior to fall:: reports: none Loss of Consciousness: no loss of consciousness Injury Associated Symptoms: reports: joint pain (R hip radiating to R groin) - HIP/PELVIS PAIN/INJURY Hip Pain Location: reports: hip (R) Pain Radiation: reports: groin (R) Context / Method of Injury: reports: fall Associated Symptoms: reports: denies symptoms - LOWER EXTREMITY PAIN/INJURY Lower Extremities Pain: hip: right Context / Method of Injury: reports: fell Associated Symptoms: reports: denies symptoms Review of Systems - Adult - REVIEW OF SYSTEMS - ADULT Constitutional: denies: chills, fever Eyes: reports: no symptoms reported Ears, Nose, Mouth & Throat: reports: no symptoms reported Cardiovascular: reports: chest pain. denies: palpitations Respiratory: denies: cough, shortness of breath Gastrointestinal: denies: abdominal pain, diarrhea, nausea, vomiting Genitourinary: reports: no symptoms reported Musculoskeletal: reports: joint pain (R hip radiating to R groin). denies: back pain Integumentary: reports: no symptoms reported Neurological: denies: dizziness/vertigo, seizure Psychiatric: reports: no symptoms reported Endocrine: reports: no symptoms reported Hematologic/Lymphatic: reports: no symptoms reported Allergic/Immunologic: reports: no symptoms reported All Other Systems: Reviewed and Negative Past History - Adult - PAST MEDICAL HISTORY-ADULT Review of Records: reports: Old Records Reviewed, Nursing Assessment Review, Me dications Reviewed Major Childhood Illnesses: reports: denies history Cardiovascular: reports: HTN Respiratory: reports: cancer Gastrointestinal: reports: denies history Obstetrical/Gynecological: reports: denies history Genitourinary: reports: denies history Musculoskeletal: reports: arthritis Neurological: reports: denies history, CVA Endocrine/Immune: reports: denies history Other Conditions: reports: denies history - PRIOR SURGERIES/PROCEDURES Surgical/Procedure History: reports: appendectomy, cholecystectomy, tonsillectomy, joint replacement (total hip) - PRIOR HOSPITALIZATIONS Prior Hospitalizations: reports: none - IMMUNIZATION STATUS Childhood Immunizations: See Nurse Assessment Flu Vaccine: See Nurse Assessment - FAMILY HISTORY Family History: reviewed, not pertinent - SOCIAL HISTORY Smoking: quit greater than 1 year Substance Use: none/never Alcohol Use Frequency: never Living Situation: family Physical Exam-Injury Related - Physical Exam-Injury Related Initial Vital Signs Reviewed: Yes General Appearance: appears well, alert, no apparent distress Eyes: PERRL/EOMI, pink conjunctivae Head, Ears, Nose, Mouth & Throat: normocephalic/atraumatic, moist mucous membranes, other (ecchymosis to lower lip) Neck: non-tender, full range of motion Respiratory: lungs clear, normal breath sounds, tenderness (L upper anterior chest wall) Cardiovascular: normal peripheral pulses, regular rate, rhythm Abdominal Exam: normal bowel sounds, non tender, soft Back Exam: normal inspection, no CVA tenderness, no vertebral tenderness Extremity: tenderness (R hip), other (no pain with compression or rotation). 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 nml as tested, grossly normal, no motor/sensory deficits Psych/Mental Status: normal mood/affect, normal thought content, normal thought process - Glascow Coma Score Best Eye Response ([place]): (4) open spontaneously Best Verbal Response ([place]): (5) oriented Best Motor Response ([place]): (6) obeys commands Progress - PLAN OF CARE/RESULTS Progress/Plan/Lab Results: Vital Signs - 8 hr 11/09/18 19:13 11/09/18 19:16 11/09/18 19:17 Temperature 97.5 F L Pulse Rate 105 H 107 H Respiratory Rate 18 Blood Pressure 131/95 156/94 131/95 O2 Sat by Pulse Oximetry 96 95 96 11/09/18 19:31 11/09/18 19:46 11/09/18 20:01 Temperature Pulse Rate 105 H 103 H 105 H Respiratory Rate Blood Pressure 107/80 115/93 153/103 O2 Sat by Pulse Oximetry 95 96 98 11/09/18 20:46 11/09/18 21:16 Temperature Pulse Rate 106 H 103 H Respiratory Rate Blood Pressure 128/99 160/106 O2 Sat by Pulse Oximetry 97 98 Laboratory Results - last 24 hr 11/09/18 11/09/18 11/09/18 20:44 20:44 20:44 WBC 16.08 H RBC 5.17 Hgb 15.6 Hct 45.9 MCV 88.8 MCH 30.2 MCHC 34.0 RDW Std Deviation 13.5 Plt Count 170 MPV 10.5 H Immature Gran % (Auto) 0.8 H Neut % (Auto) 72.5 Lymph % (Auto) 17.0 L [place] % (Auto) 7.0 Eos % (Auto) 2.5 Baso % (Auto) 0.2 Immature Gran # (Auto) 0.13 H Neut # (Auto) 11.64 H Lymph # (Auto) 2.74 [place] # (Auto) 1.12 H Eos # (Auto) 0.41 Baso # (Auto) 0.04 Sodium 139 Potassium 4.6 Chloride 101 Carbon Dioxide 24 L Anion Gap 14 BUN 16 Creatinine 0.7 Estimated GFR/1.73 m2 > 60 BUN/Creatinine Ratio 23 Glucose 116 H Calculated Osmolality 280 Calcium 9.7 Troponin T < 0.010 Urine Source Urine Color Urine Turbidity Urine pH Ur Specific [place] Urine Protein Ur Glucose (Stick) Ur Ketones (Stick) Urine Blood Urine Nitrite Urine Bilirubin Urobilinogen Dipstick Urine Leukocytes Urine WBC (Auto) Urine RBC (Auto) U Epithel Cells (Auto) Urine Bacteria (Auto) 11/09/18 23:23 WBC RBC Hgb Hct MCV MCH MCHC RDW Std Deviation Plt Count MPV Immature Gran % (Auto) Neut % (Auto) Lymph % (Auto) [place] % (Auto) Eos % (Auto) Baso % (Auto) Immature Gran # (Auto) Neut # (Auto) Lymph # (Auto) [place] # (Auto) Eos # (Auto) Baso # (Auto) Sodium Potassium Chloride Carbon Dioxide Anion Gap BUN Creatinine Estimated GFR/1.73 m2 BUN/Creatinine Ratio Glucose Calculated Osmolality Calcium Troponin T Urine Source CLEAN CATCH Urine Color STRAW Urine Turbidity CLEAR Urine pH 6.5 Ur Specific [place] 1.018 Urine Protein NEGATIVE Ur Glucose (Stick) NEGATIVE Ur Ketones (Stick) NEGATIVE Urine Blood TRACE A Urine Nitrite NEGATIVE Urine Bilirubin NEGATIVE Urobilinogen Dipstick NORMAL Urine Leukocytes NEGATIVE Urine WBC (Auto) <10 Urine RBC (Auto) <10 U Epithel Cells (Auto) <10 Urine Bacteria (Auto) NEGATIVE Orders Category Date Time Status IV Insertion ORDERED Care 11/09/18 20:[address] ANGIOGRM PULMONARY ARTERIES [CT] Stat Exams 11/09/18 20:[address] HEAD/C-SPINE W/O CONTRAST [CT] Stat Exams 11/09/18 20:02 Completed XRAY PELVIS W/HIP 2-3VW RT [RAD] Stat Exams 11/09/18 20:02 Completed BASIC METABOLIC PANEL [CHEM] Stat Lab 11/09/18 20:44 Completed CBC WITH DIFF [HEME] Stat Lab 11/09/18 20:44 Completed TROPONIN T Stat Lab 11/09/18 20:44 Completed UA [URINALYSIS W/POSS RFLX CULT] [URINALYSIS] Stat Lab 11/09/18 23:23 Completed Morphine Med 11/09/18 21:26 Discontinued 4 mg IV NOW ONE fall with hip pain also with ongoing chest pain which per family is thought to be related to her lung cancer. will further evaluate for injuries and causes and will closely observe Result Diagrams: 11/09/18 20:44 11/09/18 20:44 - REASSESSMENT Reassessment #1 Status: improving (pain improved but when attempted ambulation in the ED pt unable to weight bear on her right hip due to pain. Will admit for further evaluation and treatment.) - XRAY 1 XRAY: Right XRAY Study: Pelvis, Hip Impression: Normal ([facility] [address] [facility], [address], [place] [address] Department of Imaging Patient: KRISTINA LAND Date: 11/09/18MR#: [id number] : 1940DM Status: REG ERAcct#: [id number] Age/Sex: 78/FRoom/Bed: Loc: ED Ordering Physician: Genesis Carney MD Family Physician: None,PCP Reason for Procedure: fall with right hip pain Signed XRAY PELVIS W/HIP 2-3VW RT - 11/09/2018 INDICATION: fall with right hip pain TECHNIQUE: Three views COMPARISON: 12/21/2017 FINDINGS: There are stable bilateral total hip replacements. Alignment is anatomic. No hardware fracture or loosening. IMPRESSION: No acute disease or complication. Electronically signed by Enrique Mckeon 11/09/2018 8:43 PM 11/09/182042 Interpreting Physician: Enrique Mckeon MD Dictated Date/Time: 11/09/182041 cc: Genesis Carney MD; None,PCP) - CT/MRI 1 CT Study: Cervical Spine, Head Impression: Normal ([facility] [address], [address], [place] [address] Department of Imaging Patient: KRISTINA LAND [facility] Date: 11/09/18MR#: [id number] : 1940DM Status: REG ERAcct#: [id number] Age/Sex: 78/FRoom/Bed: Loc: ED Ordering Physician: Genesis Carney MD Family Physician: None,PCP Reason for Procedure: fall with impaction of head Signed CT HEAD/C-SPINE W/O CONTRAST - 11/09/2018 INDICATION: fall with impaction of head COMPARISON: 07/24/2018, 07/20/2018 FINDINGS: Head CT: The ventricles and sulci are normal in size and contour. Stable mild pe riventricular white matter chronic microvascular disease. No intracranial mass or hemorrhage. The skull is intact. The sinuses are grossly clear. Cervical spine: There is stable exaggeration of the normal cervical lordosis. No fracture or subluxation. There is advanced multilevel facet degeneration. There is severe calcified vascular disease of the left vertebral artery. IMPRESSION: No acute injury. No change from prior. This exam was performed using automated exposure control, adjustment of mA or kV according to patient size, and/or use of iterative reconstruction technique Electronically signed by Enrique Mckeon 11/09/2018 8:46 PM 11/09/182045 Interpreting Physician: Enrique Mckeon MD Dictated Date/Time: 11/09/182042 cc: Genesis Carney MD; None,PCP) 2 CT Study: other (Pulmonary Arteriogram) Impression: Normal ([facility] [address] , [address], [place] [address] Department of Imaging [facility]: 11/09[facility]18#: [id number] : 1940ADM Status: REG ERAcct#: [id number] Age/Sex: 78/FRoom/Bed: Loc: ED Ordering Physician: Genesis Carney MD Family Physician: None,PCP Reason for Procedure: chest pain with known lung ca Signed CT ANGIOGRM PULMONARY ARTERIES - 11/09/2018 INDICATION: chest pain with known lung ca TECHNIQUE: Axial CT images were obtained after administering intravenous contrast. Coronal MIP images were generated. COMPAR MANDEEP: 07/05/2018 FINDINGS: There is no pulmonary embolism. There is severe vascular disease of the aorta, coronary arteries, and great vessels. There is critical stenosis of the proximal left subclavian artery which indicates probable subclavian steal syndrome. Stable borderline right hilar and subcarinal lymph nodes, but no significant adenopathy. Upper abdominal images appear unremarkable. Stable nodule in the right middle lobe measuring 2.3 x 2.5 cm. There is some stable adjacent infiltrate or atelectasis at the major fissure. There are moderate degenerative changes of the spine. No acute or suspicious bony lesion. IMPRESSION: Negative for pulmonary embolism. No change from prior. This exam was performed using automated exposure control, adjustment of mA or kV according to patient size, and/or use of iterative reconstruction technique Electronically signed by Enrique Mckeon 11/09/2018 10:17 PM 11/09/182216 Interpreting Physician: Enrique Mckeon MD Dictated Date/Time: 11/09/182211 cc: Genesis Carney MD; None,PCP) Departure - Departure Date of Disposition Decision: 11/10/18 Time of Disposition Decision: 00:30 DIAGNOSIS: Contusion, hip Qualifiers: Encounter type: initial encounter Laterality: right Qualified Code(s): S70.01XA - Contusion of right hip, initial encounter Chest pain Qualifiers: Chest pain type: unspecified Qualified Code(s): R07.9 - Chest pain, unspecified Disposition: ADMITTED INPATIENT 09 Certified Medical Emergency: Emergent Condition: Fair Referrals and Follow-Ups: None,PCP [Primary Care Provider] - - Critical Care Note This patient required my direct & personal management of CC.: No Attestation - Physician/ MAGDALENO Attestation Patient care was provided by Advanced Practice Provider:: No The physician spent face to face time with patient:: Yes Advanced Practice Provider documentation review:: Supervising physician onsite and consulted in the evaluation and care of this patient. The physician did have a face to face encounter with the patient. This chart was documented by the indicated scribe, (Isabelle Monge, [place]) and accurately reflects the services I performed and decisions made by me, Genesis Carney MD, as attested by the provider's signature.
[2018-11-10] MEDS ORDERED: ATIVAN IV ONE (00:47)
[2018-11-10] MEDS ORDERED: NS 500 ML IV ONE (01:38)
[2018-11-10] MEDS ORDERED: NS 1,000 ML IV SCH (01:45)
[2018-11-10] MEDS ORDERED: ZOFRAN IV PRN (02:56)
[2018-11-10 07:19] LABS: HEMATOCRIT 46.2 % (37.0-47.0); HEMOGLOBIN 15.4 g/dL (12.0-16.0); RBC 5.08 XMIL (4.2-5.4); WBC 13.59 X1000 (4.8-10.8)
[2018-11-10 07:20] LABS: BASO# 0.04 X1000 (0.0-0.2); BASO% 0.3 % (0.0-0.8); EOS# 0.48 X1000 (0.0-0.7); EOS% 3.5 % (0.0-10.0); IMM GRAN# 0.03 X1000 (0.0-0.04); IMM GRAN% 0.2 % (0.0-0.5); LYMPH# 2.48 X1000 (1.2-3.4); LYMPH% 18.2 % (20.5-51.1); MCH 30.3 PG (27-31); MCHC 33.3 g/dL (33-37); MCV 90.9 FL (81-99); MONO# 1.24 X1000 (0.11-0.59); MONO% 9.1 % (1.7-9.3); MPV 11.4 FL (7.4-10.4); NEUT# 9.32 X1000 (1.4-6.5); NEUT% 68.7 % (42.2-75.2); PLT 137 X1000 (130-400); RDW 13.6 % (11.5-14.5)
[2018-11-10 07:38] LABS: AGAP 15; ALB/GLOB RATIO 1.7; ALKALINE PHOSPHATASE 102 U/L (32-104); BUN 14 mg/dL (8-22); CALCIUM 8.9 mg/dL (8.8-10.2); CHLORIDE 101 mmol/L (98-107); CK PROFILE 66 U/L (24-173); COSMO 277; CREATININE 0.8 mg/dL (0.5-0.9); ESTIMATED GFR > 60; GLUCOSE 119 mg/dL (70-104); GOT 52 U/L (10-30); GPT 34 U/L (10-36); MAGNESIUM 1.9 mg/dL (1.5-2.7); POTASSIUM 4.2 mmol/L (3.5-5.1); SODIUM 138 mmol/L (136-145); TCO2 22 mmol/L (25-35); TOTAL BILIRUBIN 0.71 mg/dL (0.20-1.00); TOTAL PROTEIN 6.3 g/dL (6.3-8.3)
[2018-11-10] MEDS ORDERED: SOLU-MEDROL IV ONE (12:53)
--- NOTE | 2018-11-10 13:34 | PROGRESS NOTE ---
DATE: 11/10/2018 SUBJECTIVE: The patient says she cannot walk. She has had lung cancer. She has been having falls and she fell yesterday hurting her right. Hip x-rays do not show any fracture. She has had bilateral hip replacements. She has also over the last 3 or 4 weeks been having intermittent left- sided chest pain. She is tender to palpation over the chest wall most consistent with costochondritis. This patient was admitted to me by the hospitalists overnight but I have never seen her before. She said she has lost her primary care physician, Dr. Bowles, as he retired recently and she was looking for a new physician. She called Dr. Moses's office she told me but he was not accepting new patients. I offered to continue to see her if she wanted to have me be her primary care physician or that I would transfer her back to the hospitalist if she wanted to see someone else and she said she wanted to go ahead and establish with me. OBJECTIVE: Blood pressure is 123/96, respirations 16, pulse 85, temperature 98 degrees Fahrenheit.HEENT: She is normocephalic. EOMS intact. PERRLA. Throat clear. Lungs: Clear to auscultation and percussion without rhonchi, rales, wheezes. Heart: Regular rate and rhythm without murmurs, gallops, friction rubs. Abdomen: Soft. Active bowel sounds. No organomegaly or tenderness. Neurological: Intact grossly. DATA: CT angiogram shows severe vascular disease of the aorta, coronary artery and great vessels, there is a critical stenosis of the proximal left subclavian artery which indicates probable subclavian steel syndrome. No signs of pulmonary embolism. The patient is tender to palpation over the left anterior chest that is associated with costochondritis. There is some stable adjacent infiltrate or atelectasis at the major fissure, there are moderate degenerative changes of the spine. No acute or suspicious bony lesions though she says she has had lung cancer in the past. Laboratory does show an elevated white count which could be from pain, do not see any source of infection at this point. Family is considering putting her in a half-way. Urinalysis was normal. ASSESSMENT: 1. Falls. 2. Costochondritis. 3. Questionable subclavian steal syndrome on the left. Apparently also has peripheral and coronary artery disease and history of lung cancer. Looking at her old records, she also had significant stenosis and occlusion of the A-1 segment of the anterior cerebral on the left and stenosis of the proximal middle cerebral artery on MRA. PLAN: Cardiology has been consulted because of her chest pain and her falls. We will continue workup and care. cc: Arslan Smith Jr, MD
--- NOTE | 2018-11-10 15:29 | CARDIOLOGY CONSULTATION ---
DATE: 11/10/2018 Patient has history of frequent falls. She was admitted and she has multiple other problems. She also complaints of chest pain. Cardiology was consulted. She has had lung cancer and she was in a recliner when she got up and she tripped and fell and she mainly complained of having hip pain at that time. Hip x-rays did not show any fracture. She has had bilateral hip replacement. She also has had sharp episodes of left-sided chest discomfort tender to palpation as well. There is no orthopnea. There is no paroxysmal nocturnal dyspnea. Exercise capacity significantly limited. REVIEW OF SYSTEMS: A 14-point review of system was done.GI: There is no history of nausea. There is no vomiting. There is no hematemesis or melena. Central nervous system: No focal weakness to suggest a CVA, TIA. : There is no dysuria or hematuria. PAST MEDICAL HISTORY: 1. History of frequent falls not associated with any loss of consciousness. 2. Bilateral hip replacement. 3. Recent echocardiogram revealed preserved left ventricular systolic function. No significant valvular abnormalities. 4. She had an MRI of the brain which revealed extrinsic microvascular chronic changes superimposed with lacunar infarcts on right. This was earlier this year. She had an MRA of the brain and neck, had significant stenosis and occlusion of the anterior cerebral of the left stenosis of the proximal middle cerebral artery as well. 5. EEG was unremarkable. 6. Has history of hypertension, hyperlipidemia. 7. History of unresectable right lung cancer. 8. COPD. 9. Dementia. MEDICATIONS AT HOME: Include Lumigan eye drops, lisinopril 10 mg p.o. b.i.d., timolol eye drops, enteric-coated aspirin, Crestor 20 mg a day. ALLERGIES: She is allergic to Ketoralac. PHYSICAL EXAMINATION: Blood pressure 136/80. First and second heart sounds were heard. There was no S3 gallop. Respiratory: Normal air entry. There is no crepitations or rhonchi. Abdomen: Soft, nontender. There was no guarding or rigidity. Bowel sounds were heard. Central nervous system: Alert, was moving extremities. Detailed central nervous system examination not performed. Chest wall revealed tenderness in the 3rd and 4th costochondral junction. Cardiac enzymes were negative. She had a CT scan of the lungs which revealed stenosis of the proximal left subclavian artery, coronary calcification was noted. Negative for pulmonary embolism. LABORATORY EXAMINATION: WBC 13.5, hemoglobin 15, hematocrit 46, platelet count of 137,000. Sodium 138, potassium 4.2, BUN 14, creatinine 0.8. Cardiac enzymes negative. Hip and pelvic x-rays unremarkable. Electrocardiogram revealed multifocal atrial rhythm, right bundle branch block. ASSESSMENT AND PLAN: Ms Vielka Pino is an 78-year-old lady with history of lung cancer, chronic obstructive pulmonary disease, frequent falls, hypertension, hyperlipidemia, has had peripheral vascular disease and has had transient ischemic attacks in the past, comes with complaints of chest pain and having fallen. She did not lose any consciousness. She does not complain of any palpitations. RECOMMENDATIONS: 1. From a cardiac standpoint, atypical symptoms. Will set her up to undergo a Lexiscan Cardiolite stress test to assess for ischemia. 2. Her recent echocardiogram was unremarkable. 3. She has had hip replacements in the past. Hip x-rays given her recent fall was unremarkable. As far as electrocardiogram is concerned, she has multifocal atrial rhythm with right bundle branch block and cardiac enzymes are negative. Would recommend continuing with aspirin. She has frequent falls. We will not anticoagulate her. 4. I have not made any other changes to her medications. Thank you for the consult. cc: MD Arslan Casillas Jr, MD
--- NOTE | 2018-11-10 16:30 | Diag Imaging Result Doc PS360 ---
CHEST-PORTABLE - 11/10/2018 INDICATION: lung ca COMPARISON: CT from 11/09/2018 FINDINGS: There is a stable opacity in the right middle lobe at the medial heart border. Stable cardiomegaly and pulmonary vascular congestion. No new infiltrates. No large pleural effusion. IMPRESSION: No change from prior. Electronically signed by Enrique Mckeon 11/10/2018 4:28 PM
[2018-11-10] MEDS: TYLENOL PO PRN (22:40)
--- NOTE | 2018-11-11 03:54 | HISTORY AND PHYSICAL ---
PRIMARY CARE PROVIDER: Was previously Dr. Bowles though she has seen JAVI Alcala, recently as well. CHIEF COMPLAINT: A fall with right hip pain. HISTORY OF PRESENT ILLNESS: Ms Neville is an 78-year-old female with a past medical history most notable for lung cancer which was diagnosed over a year ago though she has not received any treatment for this. The patient's brbkjksw-sy-tvk states that this was found to be a nonaggressive cancer and they have been monitoring this. She reports that when she was first diagnosed she did undergo what sounds like a right thoracotomy though the lung tumor was unable to be resected. She also has a history of hypertension, peripheral vascular disease, COPD, and CVA for which she does have some residual deficits of generalized weakness and worsening memory problems since her stroke. Rosenda Holloway is the patient's rzindrdb-iv-lme. She was at bedside during my examination. She does help take care of the patient and was able to provide assistance with history of present illness and past medical history. Just prior to my examination, the patient was reportedly very restless, agitated and was having anxiety. They did give her IV 0.5 mg of Ativan as well as 4 mg IV morphine and secondary to this the patient is sleeping, very drowsy, was only able to be aroused briefly before she would drift back off to sleep and was able to tell me her name though secondary to this I was not able to obtain history of present illness or review of systems with the patient. This was all done by her efoittum-fi-qwb at bedside. Her dssbhifw-dd-jjp, Rosenda, reports that this evening she went to get out of her recliner though the blanket that she was using did get caught in the recliner and the patient had turned and was pulling on the blanket trying to get it loose when the blanket gave way causing her to fall. She states that she did fall forward and landed prone on her face and her abdomen. Remarkably, the patient does not have any obvious facial trauma other than a very small, possibly just smaller than the size of a #2 pencil eraser, ecchymosis on her left lower lip though she was complaining of right hip pain after the fall and has been unable to bear weight on this since then. Not related to the fall, the zbwdmcof-gx-jab also reports that she has been complaining of some intermittent left-sided chest pain off and on for 3 weeks. She has also had a cough though she has been evaluated by her oncologist and nurse practitioner for this. The oncologist thinks it was not related to her lung cancer. She had been prescribed a PPI thinking that her cough may be related to some acid reflux though the patient has been refusing to take this, according to her tmqvgcat-sa-dob. Upon evaluation in the ER, a CT head and cervical spine was performed which showed no acute injury or change from prior. An x-ray pelvis with right hip views showed no acute disease or complication. The patient has had bilateral total hip replacements though these appear to be stable alignment with anatomic and there was no hardware fracture or loosening. Given her history of lung cancer as well as reports of chest pain, they did perform a CTA pulmonary arteries which showed negative for a pulmonary embolism. There was a critical stenosis of the left proximal subclavian artery which indicates probable subclavian steal syndrome. There was a stable nodule in the right middle lobe measuring 2.3 x 2.5 cm though there was no change from prior comparison exam in June of 2018. They did try to get the patient to ambulate in the ER though the patient was unable to bear weight on her right lower extremity. She has still been complaining of right lower extremity and right hip pain that radiates into her groin as well. Also, the patient's gogcxjej-gx-nsr did say that over the last several months she has been complaining more of right groin pain and right pain in that hip. During my examination at bedside, I did note on the bedside cardiac rehabilitation specialist that it looked as though the patient's heart rate was irregular. Upon palpation and auscultation, this was confirmed. She does have a heart murmur noted as well. We did perform an EKG in the ER which did note that she was in atrial fibrillation with a rapid ventricular response at a rate of 118. This was at the time of the EKG being performed. The patient was as previously mentioned had been agitated was being stimulated. Her elevation in her heart rate may been related to this because otherwise her heart rate is controlled. She is maintaining a heart rate in the 90s to low 100s. Looking back, it does not appear the patient has had a history of atrial fibrillation. Her family denies any known history of this as well. She will be placed inpatient for admission. REVIEW OF SYSTEMS: As previously mentioned, the patient unfortunately had been given medications for agitation and pain prior to my examination and was very drowsy. Due to this, we were unable to perform review of systems with the patient. Please see above HPI for reported symptoms by her amcvsvem-nl-cgi. PAST MEDICAL HISTORY: 1. Hypertension. 2. Peripheral vascular disease. 3. COPD. 4. Lung cancer which according to the lcvkvekq-yp-cxn she is being followed for this though she has not received any treatment. They did perform what sounds to be a right thoracotomy for possible resection of the tumor though it was unresectable. 5. History of CVA with residual worsened generalized weakness and memory problems. PAST SURGICAL HISTORY: 1. Bilateral hip replacements. 2. Possible right thoracotomy that was initially performed for possible resection of her right lung tumor though upon surgical assessment was found to be unresectable. SOCIAL HISTORY: There is a distant history of previous cigarette use for several years when she was younger though the patient has not smoked for quite some time. There is no known alcohol or illicit drug use. She does live at home. Her vzovdnta-jq-fid and her son help take care of her. Her ryfybsuy-fv-esy, Rosenda Holloway, was present at bedside during my examination. The patient does use the assistance of a walker at times. FAMILY HISTORY: Notable for diabetes, COPD, stroke in first-degree relatives. ALLERGIES: Patient has allergies to prednisone and Toradol. HOME MEDICATIONS: 1. Aspirin 81 mg p.o. daily. 2. Lumigan 2.5 mL ophthalmically daily. 3. Dorzolamide/timolol eye drops 1 drop ophthalmically daily. 4. Lisinopril 10 mg p.o. b.i.d. 5. Crestor 20 mg p.o. daily. DIAGNOSTIC DATA: White blood cell count is 16,080, hemoglobin 15.6, hematocrit 45.9, platelet count is 170,000. Sodium 139, potassium 4.6, chloride 101, serum bicarbonate is 24, BUN 16, creatinine 0.7 with a GFR greater than 60, glucose 116, calcium 9.7. Troponin was less than 0.01. EKG performed in the ER did show the patient did have atrial fibrillation with rapid ventricular response at a rate of 118. There was a right bundle branch block noted. CT head and C-spine without contrast showed no acute injury, no change from prior exam. X-ray pelvis with right hip view showed no acute disease or complication. There were stable bilateral total hip replacements. It was noted that the alignment was anatomic and that there was no hardware fracture or loosening noted. CTA of pulmonary artery showed negative for pulmonary embolism. There was critical stenosis of the proximal left subclavian artery which indicates probable subclavian steal syndrome. There was a stable nodule in the right middle lobe measuring 2.3 x 2.5 cm. There was no change from prior exam performed in June of 2018. PHYSICAL EXAMINATION: VITAL SIGNS: Temperature 97.7 degrees, heart rate 96, respirations 16, blood pressure 97/47. MAP of 56. Oxygen saturation was 92% on room air though I did place the patient on nasal cannula at 2 L. She did improve to oxygen saturation of 98 to 99 percent. GENERAL: Mr. Neville is an 78-year-old female. She was resting in the ER stretcher. She was sleeping upon my examination. She was arousable with verbal and tactile stimulation and would briefly open her eyes. She was able to tell me her name but would directly go back to sleep. She had previously just prior to my examination been given 0.5 mg of Ativan IV as well as 4 mg of morphine IV. This is likely the cause of her drowsiness. Prior to this, she was reportedly agitated, restless and anxious in the ER. HEENT: Head is atraumatic except for the patient does have a very small bruise noted on her left lower lip. NECK: Supple. Trachea midline. CARDIOVASCULAR: Patient has S1-S2 present though does have a systolic murmur noted. She does have an irregularly irregular rhythm though her heart rate is controlled at this time in the 90s to low 100s. PULMONARY: Patient has symmetrical chest expansion bilaterally. Lung sounds are clear to auscultation in bilateral full judd. ABDOMEN: Soft, nondistended, nontender. Bowel sounds are present in all 4 quadrants, were normoactive. EXTREMITIES: No cyanosis or edema noted. Radial and pedal pulses are 2+ bilaterally. The patient did not have any obvious deformity, shortening or rotation noted to her right lower extremity. INTEGUMENTARY: The patient's skin is pink, warm, and dry. NEUROLOGICAL: As previously mentioned above, the patient is sleeping. She was arousable with verbal and tactile stimulation, would briefly awaken. She could tell me her name though would drift right back off to sleep. This is likely secondary to the IV medication she was given just prior to my examination though at this time her neurological exam is limited secondary to this. ASSESSMENT AND PLAN: 1. Mechanical fall from standing with right hip pain. X-ray pelvis with right hip views in the ER did not show any acute abnormalities or fracture. Her previous hardware was noted to be fine as well with no fracture or loosening noted. We will let her rest tonight. We have ordered for a physical therapy evaluation tomorrow to see if she will be able to try to bear weight. If the patient continues to have problems with her right hip pain, she may need further radiology exams. We will continue to follow along. 2. Chest pain. The patient had been complaining of left-sided chest pain intermittently for 3 weeks. CTA angiogram pulmonary arteries did not show any acute abnormality. She does have a previously known left lung tumor. Her cardiac enzymes have been negative. EKG did show a new onset atrial fibrillation though she is rate controlled at this time. We have placed a consult with Cardiology. We will await their evaluation and further recommendations for management. We will continue a series of cardiac enzymes and an echocardiogram in the morning. 3. New onset atrial fibrillation. We will continue with treatment as mentioned above in #2. 4. History of lung cancer, aware. 5. History of cerebrovascular accident, aware. 6. Deep vein thrombosis prophylaxis will be provided with sequential compression devices. The patient has been placed on the medical floor with telemetry. She will have vital signs q.4 hours. We will do neurological checks q.4 hours as well. We will repeat a CBC and CMP in the morning. She did have a slightly elevated white blood cell count of 16,080 though she has not been febrile. The family has not reported any fever, body aches, or chills. She has no urinary tract infection as well. There is no known source of infection. This could be reactive secondary to her fall. We will continue to follow. Further orders and recommendations pending hospital course, diagnostic studies, and physician evaluation. Dictated by JAVI Marte for Geovanny Walter MD cc: MD Arslan Mckinney Jr, MD
--- NOTE | 2018-11-11 07:15 | EKG Report ---
Test Performed on : 11/10/2018 01:40:16 AM Test Reason : Irregular Heart Rhythm Blood Pressure : / mmHG Vent. Rate : 118 BPM Atrial Rate : 133 BPM P-R Int : 000 ms QRS Dur : 124 ms QT Int : 326 ms P-R-T Axes : 000 115 033 degrees QTc Int : 456 ms Atrial fibrillation. with rapid ventricular response. with premature ventricular or aberrantly conduc annette complexes. Right bundle branch block Left posterior fascicular block Bifascicular block Abnormal ECG When compared with ECG of 21-JUL-2018 11:57, Atrial fibrillation. has replaced Sinus rhythm. Borderline criteria for Inferior infarct are no longer present Unconfirmed Result
--- NOTE | 2018-11-11 09:22 | PROGRESS NOTE ---
DATE: 11/11/2018 SUBJECTIVE: The patient still is sore in her right hip. She has no other complaints at this time. She would like to consider going to assisted living. We will get social work program coordinator to see for this. She had been having some problems with the right hip and the right leg before she had a fall, but it has been worse since the fall. X-rays did not show any fractures. The patient does have some anterior chest wall tenderness. I did give her one dose of methylprednisolone, but it did not seem to help a whole lot at this point. She is leery to take any more steroids. There is some question about atrial fibrillation which was shown on her EKG. Because of her falls, community associate recommends not putting her on anticoagulation other than aspirin. PHYSICAL EXAMINATION: Vital Signs: Blood pressure 126/82, respirations 19, pulse 87 and irregular. Temperature 97.6 degrees Fahrenheit. HEENT: She is normocephalic. EOMS intact. PERRLA. Throat clear. Lungs are clear to auscultation and percussion without rhonchi, rales, or wheezes. Heart is irregular without murmurs, gallops, or friction rubs. Abdomen: Soft. Active bowel sounds. No organomegaly or tenderness. Neurologic: Exam intact grossly. Reflexes 1+. Still has tenderness in the right hip and right thigh. ASSESSMENT: 1. New onset of atrial fibrillation. 2. Contusion of right hip and right leg. 3. Chest wall tenderness consistent with costochondritis. PLAN: We will do a stress test, and get physical therapy and social work program coordinator to see her. cc: Arslan Smith Jr, MD
[2018-11-11] MEDS ORDERED: LEXISCAN ONE (13:31)
[2018-11-11] MEDS ORDERED: AMINOPHYLLINE ONE (13:44)
--- NOTE | 2018-11-11 16:12 | Diag Imaging Result Document ---
PROCEDURE NAME: MYOCARDIAL PERF SCAN, STR/REST - 11/11/2018 INDICATIONS: Chest pain. PROCEDURES PERFORMED: 1. Lexiscan stress. 2. One-day stress rest myocardial perfusion imaging. PROCEDURE IN DETAIL: Ms. Neville was brought to the nuclear laboratory and had a resting study with injection of 10.7 mCi of technetium-99m sestamibi with usual imaging protocol utilized. She subsequently was brought back and had a Lexiscan stress. At peak stress, was injected with 31 mCi of technetium-99m sestamibi with usual imaging protocol utilized. FINDINGS: LEXISCAN STRESS RESULTS: 1. Baseline EKG shows sinus rhythm with a right bundle branch block. 2. Lexiscan stress did not demonstrate any clear evidence of ischemic related EKG changes or significant arrhythmias during the course of the study. PERFUSION IMAGING RESULTS: 1. No evidence of abnormal extracardiac uptake. 2. TID ratio 0.74. 3. Perfusion imaging demonstrates normal homogenous uptake of radiotracer throughout the myocardial segments. There does not appear to be any stress-related defects. 4. Normal ejection fraction of 90%. The end-diastolic volume is 45 and systolic volume 5. Normal wall motion. cc: MD Kenan Montgomery MD
--- NOTE | 2018-11-12 09:09 | PROGRESS NOTE ---
DATE: 11/12/2018 SUBJECTIVE: The patient says she feels a little better with her chest pain. Still has right hip pain. Has not been up to walk yet. I have consulted Physical Therapy to work with her. Her Lexiscan stress test was normal. OBJECTIVE: Vital Signs: Blood pressure is 136/103, respirations 18, pulse 103, temp 97.6 degrees Fahrenheit. HEENT: She is normocephalic. EOMS intact. PERRLA. Throat clear. Lungs: Clear to auscultation and percussion without rhonchi, rales, or wheezes. Heart: Regular rate and rhythm without murmurs, gallops, or friction rubs. Rhythm strip seems to be a normal sinus rhythm. Abdomen: Soft. Active bowel sounds. No organomegaly or tenderness. Extremities: The patient is tender over the right hip. Neurologic: Intact grossly. ASSESSMENT: 1. Cardiac arrhythmia, probable atrial fibrillation, now back in sinus rhythm. 2. Falls. 3. Pain in the right hip, cannot walk at all. 4. Chest wall pain, improving. PLAN: Will have Physical Therapy work with her today and see what she can do, see whether she needs rehab or whether she can go back home, but she will need to be able to walk some before I can send her home. Cardiology does not think that she should be anticoagulated because of her falls. Plan to have Physical Therapy work with her today. cc: Arslan Smith Jr, MD
[2018-11-12] MEDS ORDERED: TOPROL XL PO SCH (12:15)
--- NOTE | 2018-11-12 12:43 | PROGRESS NOTE ---
DATE: 11/12/2018 SUBJECTIVE: No complaints. The patient has been up and walking today and seems to be doing better with her leg. However, I got called back to the hospital because she developed an SVT with a heart rate of 205 beats per minute. I had a 12 lead EKG run and her heart rate was down to 118 beats per minute. When she came in, she had either new onset atrial fibrillation or multifocal sinus rhythm as mentioned by Cardiology. She had a stress test yesterday that was normal. She has been on lisinopril for blood pressure but has not been on that since she has been in the hospital. OBJECTIVE: Vital signs: Her blood pressure was 123/90, pulse 116 when the nurses checked it at 10:56 this morning and temperature 97.8 degrees Fahrenheit. HEENT: She is normocephalic. EOMs intact. PERRLA. Throat: Clear. Lungs: Clear to auscultation and percussion without rhonchi, rales, or wheezes. Heart: Tachycardic without murmurs, gallops, or friction rubs. Abdomen: Soft. Active bowel sounds. No organomegaly or tenderness. Neurologic: Intact grossly. Extremities: The patient's right hip seems to be doing better with her just up and walking with it now with assistance. ASSESSMENT: 1. Supraventricular tachycardia. 2. Fall. 3. Contused right hip. PLAN: We will add metoprolol-XL 50 mg to her regimen and we will monitor her closely. If this controls her blood pressure and heart rate, perhaps could still be discharged to rehab tomorrow. If not, maybe the next day. TIME SPENT: Note this is my 2nd visit today and I have spent 50 minutes with her today. cc: Arslan Smith Jr, MD
--- NOTE | 2018-11-12 13:52 | EKG Report ---
Test Performed on : 11/12/2018 12:05:41 PM Test Reason : SVT Blood Pressure : / mmHG Vent. Rate : 118 BPM Atrial Rate : 118 BPM P-R Int : 184 ms QRS Dur : 126 ms QT Int : 316 ms P-R-T Axes : 049 109 036 degrees QTc Int : 442 ms Sinus tachycardia. Right bundle branch block Cannot rule out Inferior infarct , age undetermined Abnormal ECG When compared with ECG of 10-NOV-2018 01:40, (Unconfirmed) Sinus rhythm. has replaced Atrial fibrillation. Confirmed by Mane BRITO, Prashanth Miner ([id number]) on 11/13/2018 9:43:48 AM
[2018-11-12] MEDS ORDERED: STERILE WATER INJ. INJ ONE (20:50)
[2018-11-12] MEDS ORDERED: GEODON IM ONE (20:50)
[2018-11-12] MEDS: ATIVAN IV PRN (21:02)
[2018-11-13] MEDS: ATIVAN IV PRN (05:08)
--- NOTE | 2018-11-13 08:15 | PROGRESS NOTE ---
DATE: 11/13/2018 SUBJECTIVE: The patient is very sleepy this morning. Apparently, she was a little confused last night, and was up a good bit of the night and that is when she is so sleepy today. She did arouse a little bit, and says she was feeling fine. She is still a little tender over right hip. Physical Therapy has been working with her. She had SVT yesterday that seems to be doing better today with metoprolol-XL 50 mg, but her blood pressure is a little low at 96 systolic. Pulse rate is down in the 70s to 80s. Telemetry showed pulse rate of 72. OBJECTIVE: Blood pressure is 96/62, respirations 18, pulse 80, and temperature 97.6 degrees Fahrenheit.HEENT: She is normocephalic. EOMS intact. PERRLA. Throat clear. Lungs: Clear to auscultation and percussion without rhonchi, rales, or wheezes. Heart: Regular rate and rhythm without murmurs, gallops, or friction rubs. Abdomen: Soft. Active bowel sounds. No organomegaly or tenderness. Neurological: Cranial nerves 2-12 intact grossly. Sensory and motor intact. Patient is tender over right hip a little bit yet, but she was walking with assistance in the johnson. ASSESSMENT: 1. Supraventricular tachycardia. 2. Fall with contused right hip. 3. Glaucoma. PLAN: We will decrease her metoprolol-XL to 25 mg daily. We will work on rehab placement. cc: Arslan Smith Jr, MD
[2018-11-13] MEDS: CRESTOR PO SCH (09:20)
[2018-11-13] MEDS: TOPROL XL PO SCH (09:20)
[2018-11-13] MEDS: COSOPT OPHTH SOLN BOTH EYES SCH (09:20)
[2018-11-13] MEDS: ASPIRIN PO SCH (09:20)
[2018-11-13] MEDS: LUMIGAN 0.01% OPH SOLUTION BOTH EYES SCH (09:20)
[2018-11-14] MEDS: TYLENOL PO PRN (07:23)
--- NOTE | 2018-11-14 09:13 | DISCHARGE SUMMARY ---
ADMISSION DATE: 11/10/2018 DISCHARGE DATE: 11/14/2018 CONSULTATION: With Dr. Rodriguez, cardiology. FINAL DIAGNOSES: 1. Fall with contused right hip. 2. New onset atrial fibrillation. 3. Supraventricular tachycardia. 4. Coronary artery disease. 5. Peripheral vascular disease. 6. Chronic obstructive pulmonary disease. 7. Lung cancer, being followed by oncology. 8. History of cerebrovascular accident. 9. Glaucoma. 10. Chest wall pain on the left side, consistent with costochondritis. HISTORY OF PRESENT ILLNESS: The patient came in after having a fall when she tripped and could not walk. She was complaining of pain in her right hip especially. Even when I would touch her hip, it would hurt. I felt like this was a contusion. X-rays were stable. She has had bilateral hip replacements. She also had some chest pain that I felt like was chest wall pain, but developed what appeared to be new onset atrial fibrillation. She went back to sinus rhythm and then into an SVT. Because of her falls, it was not recommended by cardiology to put her on anticoagulation. I did change her from lisinopril over to metoprolol XL 50 mg daily and she became slightly hypotensive so I changed that to 25 mg daily. Her blood pressure seems to be stable and her pulse rates are in the 80s. She has had no wheezing with this so we will continue with the beta lela. Certainly, if she started having wheezing, we could consider changing her over to something like Cardizem. During her hospitalization, she did have his confusion one night which may have been equivocal of ICU psychosis but since then, has done better. PHYSICAL EXAMINATION: Vital Signs: Blood pressure 182/73, respirations 18, pulse 75, temperature 97.9 degrees Fahrenheit. Oxygen saturation is 99% on nasal cannula. HEENT: She is normocephalic. EOMs intact. PERRLA. Throat clear. Lungs: Sound clear to auscultation and percussion without rhonchi, rales, or wheezes. Heart: At this time sounds regular rate and rhythm without murmurs, gallops, or friction rubs. Abdomen: Soft. Active bowel sounds. No organomegaly or tenderness. Neurological Examination: Cranial nerves 2-12 intact grossly. Sensory and motor intact. Reflexes 1+ all. She has no chest wall tenderness now, has no tenderness except a little bit over her right hip. She has been up walking some but can only go so far before she gets a little bit more discomfort. Because of this, we feel like rehab would be beneficial to her. Her lung cancer is being followed. She has not had any treatment for it. Apparently, it is a small lung cancer that they feel like is safer just to watch. The patient had been Dr. Perez's patient and he just retired. She was actually seeking a new physician. I had not seen her before she came to the hospital but agreed to see her and will follow up in the office after she gets out of rehab. We will continue her home medicines except we will stop her ASHLEY inhibitor and place her on metoprolol XL 25 mg daily. cc: Arslan Smith Jr, MD
[2018-11-14] MEDS: TOPROL XL PO SCH (10:24)
[2018-11-14] MEDS: ASPIRIN PO SCH (10:24)
[2018-11-14] MEDS: CRESTOR PO SCH (10:24)
[2018-11-14] MEDS: COSOPT OPHTH SOLN BOTH EYES SCH (10:25)
[2018-11-14] MEDS: LUMIGAN 0.01% OPH SOLUTION BOTH EYES SCH (10:25)
[2018-11-14 15:47] VITALS: BP 114/78
== END 2018-11-14 16:50 | DRG 604 ==
LOC: SUPCPDRO → ED 19:03 → 4N 19:03 → SUPCPDRO 11-10 01:04 → SUATTDRO 11-10 01:04
PROVIDERS: ADMIT Emergency Medicine; ATTEND Emergency Medicine
CPT/HCPCS: 70450; 71010; 71045; 71275; 72125; 73502; 78452; 80048; 80053; 81001; 82550; 83735; 84484; 85025; 93005; 93010; 93017; 93306; 94761; 94762; 97110; 97116; 97163; 97530; 99285; A9270; A9500; J0280; J0820; J2060; J2270; J2785; J2920; J3486; J7030; J7040; Q9967

== ENCOUNTER 2019-03-07 13:34 | Inpatient (IN) ==
--- NOTE | 2019-03-07 14:23 | PROVIDER DOCUMENTATION ---
HPI-General Adult - General Chief Complaint: Fall Stated Complaint: FALL FROM STANDING Time Seen by Provider: 03/07/19 14:02 Source: patient, family Allergies/Adverse Reactions: Patient Allergies Allergy/AdvReac Type Severity Reaction Status Date / Time ketorolac tromethamine * Allergy NAUSEA/VOMI Verified 03/07/19 14:37 [From Toradol] TING prednisone AdvReac Unknown Verified 03/07/19 14:37 Home Medications: Home Medication List Medication Instructions Recorded Confirmed Last Taken Type Aspirin 81 mg PO DAILY chewtab 07/25/18 03/07/19 Unknown Rx Bimatoprost [Lumigan] 2.5 ml OPHTHALMIC (EYE) QHS 11/10/18 03/07/19 Unknown History Dorzolamide HCl/Timolol Maleat 1 drp OPHTHALMIC (EYE) DAILY 11/10/18 03/07/19 Unknown History [Dorzolamide-Timolol Eye Drops] Metoprolol Succinate E.r. [Toprol 25 mg PO DAILY #30 tab 11/14/18 03/07/19 U nknown Rx Xl] Acetaminophen 650 mg PO Q4H PRN PRN 03/07/19 03/07/19 Unknown History Divalproex [Depakote] 250 mg PO QHS 03/07/19 03/07/19 Unknown History Duloxetine [Cymbalta] 30 mg PO QHS 03/07/19 03/07/19 Unknown History Hydrocodone/Acetaminophen [[place] 1 ea PO Q6H PRN PRN 03/07/19 03/07/19 Unknown History 5-325 Tablet] ROSUVAstatin [Crestor] 20 mg PO QHS 03/07/19 03/07/19 Unknown History - History of Present Illness -Gen Adult Nature of Presenting Problems: This is a 79yo female who presents with family with CC of fall. Per the patient family and EMS the patient was brushing her hair today and tripped and fell this morning. The patient did reportedly hit her head, but there was no reported loss of conciousness. The family reports that the patient had two falls yesterday, and has had five falls since July. The patient is alert and oriented x3. The patient denies any head pain or blurry vision. She reports pain in the left side of her upper abdomen as well as her right knee, elbow, and leg. The patient lives in an assisted living facility. Location of Pain/Injury: reports: chest, abdomen, lower body Pain Radiation: reports: legs (upper) Onset/Duration: reports: this morning Timing: reports: still present Context/Activities at Onset: reports: other (after fall) Associated Symptoms: reports: pain with inspiration Review of Systems - Adult - REVIEW OF SYSTEMS - ADULT Constitutional: denies: fever Eyes: denies: blurred vision Ears, Nose, Mouth & Throat: reports: no symptoms reported. denies: throat pain Cardiovascular: reports: chest pain Gastrointestinal: reports: abdominal pain Genitourinary: reports: other (decreased urination) Musculoskeletal: reports: joint pain Integumentary: reports: no symptoms reported Neurological: reports: other (frequent falls) Psychiatric: reports: no symptoms reported Endocrine: reports: no symptoms reported Hematologic/Lymphatic: reports: no symptoms reported, other (no bleeding) Allergic/Immunologic: reports: no symptoms reported Past History - Adult - PAST MEDICAL HISTORY-ADULT Review of Records: reports: Nursing Assessment Review Major Childhood Illnesses: reports: denies history Cardiovascular: reports: HTN Respiratory: reports: cancer Gastrointestinal: reports: denies history Obstetrical/Gynecological: reports: denies history Genitourinary: reports: denies history Musculoskeletal: reports: arthritis Neurological: reports: denies history Endocrine/Immune: reports: denies history Other Conditions: reports: denies history - PRIOR SURGERIES/PROCEDURES Surgical/Procedure History: reports: appendectomy, cholecystectomy, tonsillectomy, joint replacement (total hip) - PRIOR HOSPITALIZATIONS Prior Hospitalizations: reports: none - IMMUNIZATION STATUS Childhood Immunizations: See Nurse Assessment Flu Vaccine: See Nurse Assessment - FAMILY HISTORY Family History: reviewed, not pertinent Physical Exam-General - CONSTITUTIONAL General Appearance: appears well, alert, no apparent distress - EYES Eyes: PERRL/EOMI - HEAD, EARS, NOSE, MOUTH & THROAT HENMT: normocephalic/atraumatic, moist mucous membranes - RESPIRATORY Respiratory: lungs clear (breathing shallow), normal breath sounds, pain on insp iration, other (tenderness in the lower left chest) - CARDIOVASCULAR Cardiovascular: regular rate, rhythm, no edema - GASTROINTESTINAL (ABDOMEN) Abdominal Exam: soft, tenderness (LUQ) - SKIN Integumentary: normal color, ecchymosis (noted over the left elbow) - NEUROLOGIC Neurologic: betting clerks II-XII nml as tested, motor weakness (left leg weakness (reported chronic post stroke)) - PSYCHIATRIC Psych/Mental Status: normal mood/affect, normal thought content, normal thought process, oriented x 3 Progress - PLAN OF CARE/RESULTS Progress/Plan/Lab Results: Vital Signs - 8 hr 03/07/19 14:06 Temperature 97.8 F Pulse Rate 88 Respiratory Rate 14 Blood Pressure 192/90 O2 Sat by Pulse Oximetry 93 L Result Diagrams: 03/07/19 14:11 03/07/19 14:11 - REASSESSMENT Reassessment #1 Status: other (Discussed case with the hospitalist and will admit the patient for observation.) Departure - Departure Date of Disposition Decision: 03/07/19 Time of Disposition Decision: 19:06 DIAGNOSIS: Frequent falls, Tachypnea UTI (urinary tract infection) Qualifiers: Urinary tract infection type: site unspecified Disposition: ADMITTED INPATIENT Certified Medical Emergency: Emergent Condition: Fair Referrals and Follow-Ups: Chani Schaffer CRNP [Primary Care Provider] - - Critical Care Note This patient required my direct & personal management of CC.: No Attestation - Physician/ MAGDALENO Attestation Patient care was provided by Advanced Practice Provider:: No The physician spent face to face time with patient:: Yes Advanced Practice Provider documentation review:: Supervising physician onsite and consulted in the evaluation and care of this patient. The physician did have a face to face encounter with the patient.
[2019-03-07 14:41] LABS: BASO# 0.03 X1000 (0.0-0.2); BASO% 0.3 % (0.0-0.8); HEMATOCRIT 41.9 % (37.0-47.0); HEMOGLOBIN 13.8 g/dL (12.0-16.0); IMM GRAN# 0.03 X1000 (0.0-0.04); IMM GRAN% 0.3 % (0.0-0.5); LYMPH# 2.78 X1000 (1.2-3.4); LYMPH% 27.7 % (20.5-51.1); MCH 30.1 PG (27-31); MCHC 32.9 g/dL (33-37); MCV 91.5 FL (81-99); MONO# 1.26 X1000 (0.11-0.59); MONO% 12.5 % (1.7-9.3); MPV 11.5 FL (7.4-10.4); NEUT# 5.55 X1000 (1.4-6.5); NEUT% 55.2 % (42.2-75.2); PLT 150 X1000 (130-400); RBC 4.58 XMIL (4.2-5.4); RDW 13.8 % (11.5-14.5); WBC 10.05 X1000 (4.8-10.8)
[2019-03-07 15:04] LABS: AGAP 12; ALB/GLOB RATIO 1.4; ALBUMIN 3.8 g/dL (3.5-5.0); ALKALINE PHOSPHATASE 127 U/L (32-104); BUN 17 mg/dL (8-22); CALCIUM 9.4 mg/dL (8.8-10.2); CHLORIDE 100 mmol/L (98-107); COSMO 284; CREATININE 0.7 mg/dL (0.5-0.9); ESTIMATED GFR > 60; GLUCOSE 122 mg/dL (70-104); GOT 27 U/L (10-30); GPT 11 U/L (10-36); POTASSIUM 4.1 mmol/L (3.5-5.1); SODIUM 141 mmol/L (136-145); TCO2 29 mmol/L (25-35); TOTAL BILIRUBIN 0.41 mg/dL (0.20-1.00); TOTAL PROTEIN 6.6 g/dL (6.3-8.3)
--- NOTE | 2019-03-07 15:05 | Diag Imaging Result Doc PS360 ---
EXAM: CT HEAD W/O CONTRAST INDICATION: Fall TECHNIQUE: This exam was performed using automated exposure control, adjustment of mA or kV according to patient size, and/or use of iterative reconstruction technique. COMPARISON: 11/09/2018 FINDINGS: There is suggestion of minimal white matter microangiopathy, stable. There is no definite acute infarct given the limited sensitivity of CT versus MRI. There is no discrete intracranial mass, mass effect, or intracranial hemorrhage. The surrounding soft tissues and bony structures are essentially unremarkable. IMPRESSION: Stable very mild chronic appearing white matter changes. No definite acute intracranial pathology. Electronically signed by Modesto Pérez 03/07/2019 3:02 PM
[2019-03-07 16:22] LABS: URINE SOURCE CATH
[2019-03-07 16:26] LABS: BILIRUBIN URINE NEGATIVE (NEGATIVE); BLOOD URINE TRACE (NEGATIVE); COLOR YELLOW; GLUCOSE URINE NEGATIVE (NEGATIVE); KETONE URINE TRACE mg/dL (NEGATIVE); LEUKOCYTES URINE SMALL (NEGATIVE); NITRITE URINE POSITIVE (NEGATIVE); PH URINE 5.5; PROTEIN URINE TRACE mg/dL (NEGATIVE); TURBIDITY URINE CLEAR (CLEAR); UR EPITHELIAL CELLS <10 /HPF (<10); URINE BACTERIA 4+ /HPF; URINE RBC <10 /HPF (<10); URINE WBC 20-40 /HPF (<10); UROBILINOGEN URINE 2 mg/dL (NORMAL)
[2019-03-07] MEDS ORDERED: MORPHINE IV ONE (16:49)
--- NOTE | 2019-03-07 17:30 | Diag Imaging Result Doc PS360 ---
EXAM: XRAY HIP W/PELVIS BILAT 3-4VWS INDICATION: Fall TECHNIQUE: 5 views COMPARISON: 11/09/2018 FINDINGS: There have been prior bilateral hip arthroplasty. Arthroplasty hardware is in stable position. There is no radiographic evidence of hardware loosening. There is evidence of an old healed fracture at the inferior pubic ramus on the left, stable. No acute fracture, dislocation, or significant intrinsic osseous lesion is appreciated, otherwise. IMPRESSION: No evidence of acute osseous abnormality. Electronically signed by Modesto Pérez 03/07/2019 5:28 PM
--- NOTE | 2019-03-07 17:33 | Diag Imaging Result Doc PS360 ---
EXAM: ELBOW COMPLETE LEFT INDICATION: Fall TECHNIQUE: 3 views COMPARISON: None. FINDINGS: There is no discrete fracture, dislocation, or significant intrinsic osseous lesion. The visualized joint spaces are essentially unremarkable. The surrounding soft tissues are essentially unremarkable. IMPRESSION: No evidence of acute osseous abnormality. Electronically signed by Modesto Pérez 03/07/2019 5:31 PM
--- NOTE | 2019-03-07 17:33 | Diag Imaging Result Doc PS360 ---
EXAM: LOWER LEG-RIGHT INDICATION: Fall TECHNIQUE: 3 views COMPARISON: Right foot radiograph dated 02/19/2019 FINDINGS: There is no discrete fracture, dislocation, or significant intrinsic osseous lesion. The visualized joint spaces are essentially unremarkable. There are atherosclerotic calcifications. Surrounding soft tissues are essentially unremarkable, otherwise. IMPRESSION: No evidence of acute osseous abnormality. Electronically signed by Modesto Pérez 03/07/2019 5:30 PM
--- NOTE | 2019-03-07 17:35 | Diag Imaging Result Doc PS360 ---
EXAM: KNEE 3 VIEWS RIGHT INDICATION: Fall TECHNIQUE: 3 views COMPARISON: None. FINDINGS: There is chondrocalcinosis, which can be associated with CPPD. There are tiny marginal osteophytes at the patellofemoral and medial compartments. There is no discrete fracture, dislocation, or significant intrinsic osseous lesion, otherwise. There is atherosclerotic calcification. Surrounding soft tissues are essentially unremarkable, otherwise. IMPRESSION: No evidence of acute osseous abnormality. Electronically signed by Modesto Pérez 03/07/2019 5:32 PM
--- NOTE | 2019-03-07 17:37 | Diag Imaging Result Doc PS360 ---
EXAM: FOOT COMPLETE RIGHT INDICATION: Fall TECHNIQUE: 3 views COMPARISON: 02/19/2019 FINDINGS: There is a healing fracture involving the shaft of the third metatarsal. The orientation of the fracture is stable as compared to the previous study. There is evidence of early formation of callus. No new fracture is appreciated. The bony structures of the foot are stable, otherwise. There is mild soft tissue edema at the dorsum of the foot. IMPRESSION: Healing subacute fracture involving the third metatarsal that is also seen on the previous study. No new fractures are identified. Electronically signed by Modesto Pérez 03/07/2019 5:35 PM
--- NOTE | 2019-03-07 17:39 | Diag Imaging Result Doc PS360 ---
EXAM: CHEST-2 VIEWS INDICATION: Chest pain and fall TECHNIQUE: 3 views COMPARISON: 11/10/2018 FINDINGS: There is trace linear scarring versus subsegmental atelectasis at the right lung base. The lungs are grossly clear, otherwise. There is evidence of a few old healed rib fractures on the right that are stable. There is no discrete pleural fluid collection or pneumothorax. The cardiomediastinal silhouette and central vasculature are grossly unremarkable. IMPRESSION: Minimal right basilar scarring versus subsegmental atelectasis. No definite acute chest pathology, otherwise. Electronically signed by Modesto Pérez 03/07/2019 5:36 PM
--- NOTE | 2019-03-07 17:43 | Diag Imaging Result Doc PS360 ---
EXAM: THORACIC SPINE INDICATION: Fall TECHNIQUE: 3 views COMPARISON: None. FINDINGS: There are several anterior wedge deformities involving the mid thoracic spine. They are of unknown acuity but most if not all are probably chronic. Otherwise, no discrete fracture, subluxation, or significant intrinsic osseous lesion is appreciated. IMPRESSION: Multiple midthoracic spine compression deformities of unknown acuity. Electronically signed by Modesto Pérez 03/07/2019 5:41 PM
--- NOTE | 2019-03-07 17:45 | Diag Imaging Result Doc PS360 ---
EXAM: LUMBAR SPINE 2-VIEWS INDICATION: Fall TECHNIQUE: 2 views COMPARISON: None. FINDINGS: There is a compression deformity involving the L3 vertebral body of unknown acuity. There is no other discrete fracture, subluxation, or significant intrinsic osseous lesion. The surrounding soft tissues are essentially unremarkable. IMPRESSION: L3 vertebral body compression deformity of unknown acuity. Electronically signed by Modesto Pérez 03/07/2019 5:43 PM
[2019-03-07] MEDS ORDERED: TYLENOL PO PRN (19:08)
[2019-03-07] MEDS ORDERED: KEFLEX PO ONE (19:27)
[2019-03-07] MEDS ORDERED: APRESOLINE IV PRN (20:02)
--- NOTE | 2019-03-07 21:33 | HISTORY AND PHYSICAL ---
PRIMARY CARE PROVIDER: JAVI Alcala. CHIEF COMPLAINT: Fall. HISTORY OF PRESENT ILLNESS: Ms. Neville is an 79-year-old female who presented with her family after a fall. Per the patient's family and EMS, the patient was brushing her hair and tripped and fell. Reportedly the patient did not hit her head, and there was no reported loss of consciousness. The family reports that the patient had 2 falls yesterday and has had around 5 falls since July. I believe she was admitted in December for a fall with hip pain. The patient is alert and oriented. Denies any head pain or blurry vision. She does report pain in her left side and upper abdomen as well as her right knee, elbow and leg. She lives in an assisted living facility. All x-rays in the emergency room were negative. She will be placed on observation status with a physical therapy consultation as well as a social services consultation. She may benefit from a transition to a more group home care facility. PAST MEDICAL HISTORY: Frequent falls, previous CVA with chronic left-sided weakness, hypertension, PVD, COPD, lung cancer with tumor resection, possibly a right thoracotomy. PREVIOUS SURGICAL HISTORY: Bilateral hip replacements, questionable right thoracotomy but definitely tumor resection of her mass in the right lung which was attempted, but I believe that it was found to be nonresectable. Appendectomy, cholecystectomy and tonsillectomy. SOCIAL HISTORY: She smoked in the past. Quit many years ago. It is a very remote history. No alcohol or illicit drugs. Lives in an assisted living facility. The patient uses a walker at times. FAMILY HISTORY: Positive for diabetes, COPD and stroke in first-degree relatives. ALLERGIES: Prednisone and Toradol. HOME MEDICATIONS: Acetaminophen 650 mg p.o. every 4 hours p.r.n., aspirin 81 mg p.o. daily, Lumigan 2.5 mL ophthalmic in both eyes at bedtime., Depakote 250 p.o. at bedtime, dorzolamide/Timolol eye drops, 1 drop ophthalmic daily, duloxetine 30 mg p.o. at bedtime, [place] 5 p.o. every 6 p.r.n., metoprolol succinate 25 mg p.o. daily, rosuvastatin 30 mg p.o. at bedtime. REVIEW OF SYSTEMS: A 14-point review of systems was conducted with the patient, and pertinent positives are listed above in the HPI. All other systems were reviewed and found to be negative. PHYSICAL EXAMINATION: VITAL SIGNS: Temperature 97.8, pulse 83, respirations 19, blood pressure 194/80, oxygen saturation 98% on room air. GENERAL: An 79-year-old female lying in the ER stretcher. She is complaining of pain. She is alert and oriented x3, in no acute distress. HEENT: Head is atraumatic, normocephalic. Pupils equal, round and reactive to light. Extraocular eye movements are intact. Sclerae are anicteric. Conjunctivae are pink. Oral mucosa is moist. NECK: Supple. No JVD, no thyromegaly. Trachea is midline. No cervical lymphadenopathy. CARDIAC: S1 and S2 appreciated. No gallops. No rubs. A 2/6 systolic ejection murmur noted. LUNGS: Shallow inspiration. She is tachypneic. Decreased breath sounds bilaterally. No rhonchi, wheezes or rales. Symmetrical rise and fall with respirations. ABDOMEN: Soft, nondistended. Tender on the right side. Bowel sounds present in all 4 quadrants, normoactive. No pulsatile masses, no organomegaly. EXTREMITIES: No clubbing, cyanosis, or edema, 2+ pedal pulses bilaterally. No obvious deformity. INTEGUMENTARY: Warm, dry and intact. Ecchymosis on the left elbow. NEUROLOGIC: Left leg motor weakness is noted and is chronic status post previous CVA. She is alert and oriented x3. Cranial nerves II-XII are otherwise grossly normal. DIAGNOSTIC DATA: X-ray of her T-spine shows multiple midthoracic spine compressions of unknown acuity, but appear to be mostly chronic. Lumbar spine: L3 vertebral body compression, also appears to be chronic. Right foot: Has a healing subacute fracture involving the 3rd metatarsal that was seen on previous studies. No new fractures. Right lower extremity: No evidence of acute osseous abnormality. Right knee: No evidence of acute osseous abnormality. Complete left elbow: No evidence of osseous abnormality. Chest x-ray: Right basilar atelectasis, few old healing rib fractures on the right that are stable. CT of the head: Very mild chronic-appearing white matter changes that are stable. LABORATORY DATA: CBC within normal limits. Chemistry within normal limits other than a glucose of 122. Urine: Nitrate positive, leukocyte esterase positive. Urinary tract infection. ASSESSMENT/PLAN: 1. Urinary tract infection. Will give Rocephin 1 gram IV every 24 hours. Urine cultures are pending. 2. Frequent falls. Will consult physical therapy as well as social services to see if a change in living status is warranted. The patient is having rib pain and elbow pain. Will give morphine as needed. 3. Hypertension. I believe this is mostly from pain. She does have a history of hypertension; however, she only received 0.5 mg of morphine in the emergency room, which likely did not help with her pain greatly. She is quite hypertensive at this time. Will give additional morphine as well as place hydralazine IV p.r.n. on her medication profile for a systolic blood pressure greater than 160. 4. Hyperlipidemia. Continue statin. 5. History of cerebrovascular accident. Aware. Continue to monitor. 6. Atrial fibrillation. Continue beta lela. 7. Further recommendations per patient's clinical course. Dictated by JAVI Truong for Geovanny Walter MD I have performed a face to face diagnostic evaluation. Labs/ Xrays- reviewed. Exam- Chest -clear, CV- regular , Neuro- Awake and Alert and Oriented x 2. A/P- UTI, falls, HTN- Admit, IV ABX, urine culture, fall precautions, Monitor BP. Dr. Walter cc: JAVI Truong MD Alicia L. Hamman, CRNP MTDD
[2019-03-08] MEDS: NORCO-5 PO PRN ×3 (00:36→23:26)
[2019-03-08] MEDS: CYMBALTA PO SCH ×2 (00:38→21:42)
[2019-03-08] MEDS: CRESTOR PO SCH ×2 (00:38→21:41)
[2019-03-08] MEDS: DEPAKOTE PO SCH ×2 (00:52→21:42)
[2019-03-08] MEDS: LUMIGAN 0.01% OPH SOLUTION BOTH EYES SCH ×2 (00:52→21:42)
[2019-03-08] MEDS: ROCEPHIN 1 GM in NS 50 ML IV SCH ×2 (00:53→21:41)
[2019-03-08] MEDS: COSOPT OPHTH SOLN BOTH EYES SCH (08:27)
[2019-03-08] MEDS: ASPIRIN PO SCH (08:27)
[2019-03-08] MEDS: TOPROL XL PO SCH (08:27)
--- NOTE | 2019-03-08 10:51 | PROGRESS NOTE ---
DATE: 03/08/2019 SUBJECTIVE: Ms. Neville is an 79 year old. She is followed by Chani Schaffer. Presented with her family after a fall. EMS was called. The patient was brushing her hair and tripped and fell. She did not hit her head. There was no reported loss of consciousness. Family reports that the patient had 2 falls yesterday or the day before yesterday and has had around 5 falls since 07/2018. Admitted in 12/2018 for fall with hip pain. The patient is alert and oriented. Denied any head pain or blurry vision. Does report pain in her left side and upper abdomen as well as her right knee, elbow and leg. She lives in assisted living facility. All the x-rays in the emergency room were negative. Placed on observation, and they felt she may benefit from transition to more longterm facility. PAST MEDICAL HISTORY: 1. Frequent falls. 2. Previous CVA. She has chronic left-sided weakness. 3. Hypertension. 4. Peripheral vascular disease. 5. COPD. 6. Lung cancer. 7. Tumor resection. 8. Possible right thoracotomy. PAST SURGICAL HISTORY: Bilateral hip replacement, questionable right thoracotomy, but definite tumor resection of her mass in the right lung which was attempted, but I believe they found it nonresectable, appendectomy, cholecystectomy and tonsillectomy. OBJECTIVE: General: She was sleeping, easy to arouse. She said she was comfortable. Vital signs: Temperature 98.8 degrees, pulse 80, respirations 16. Blood pressure has been running high at 207/71. HEENT: Pupils are equal and round. Lungs: Clear in all lung judd. Cardiovascular: Regular rhythm and rate without murmur or S3. MEDICATIONS: She is on Depakote 250 mg at bedtime, Cymbalta 30 mg at bedtime, Crestor 20 mg at bedtime, aspirin 81 mg a day. She takes hydrocodone 5 mg p.o. q.6 hours p.r.n., metoprolol 25 mg daily, ceftriaxone she was put on 1 g q.24 hours, and I believe that was with concerns about her white count and sediment, although I am not sure she has given any symptoms of a true urinary tract infection. White blood cells 20 to 40 seen on urinalysis per high-power field, 4+ bacteria. REVIEW OF ORDERS: She is on eyedrops, Depakote 250 mg at bedtime, Cymbalta 30 mg a day, Crestor 20 mg a day, aspirin 81 mg a day, hydrocodone 5 mg q.6 hours p.r.n., metoprolol 25 mg daily. cc: Prashanth Gilliam MD
[2019-03-08] MEDS: PRINIVIL PO SCH ×2 (13:03→21:42)
[2019-03-08] MEDS: PERCOCET-5 PO PRN ×2 (16:40→21:44)
[2019-03-08] MEDS: ZOFRAN IV PRN (23:26)
--- NOTE | 2019-03-09 08:41 | PROGRESS NOTE ---
DATE: 03/09/2019 SUBJECTIVE: Ms. Neville is resting, sleeping comfortably. OBJECTIVE: Temperature 98.3 degrees, pulse 73, respirations 16, blood pressure 172/56. Pupils are equal and round. Lungs are clear in all lung judd. Cardiovascular Examination: Regular rhythm and rate without murmur or S3. Abdomen is soft. Skin is warm and dry. ASSESSMENT AND PLAN: She has had frequent falls here in the last couple weeks, is at assisted living. She was admitted on the , questionable urinary tract infection. Urine culture pending. Frequent falls. It appears she has some underlying dementia. Past medical history includes a cerebrovascular accident, chronic left-sided weakness, hypertension, peripheral vascular disease, chronic obstructive pulmonary disease, lung cancer with tumor resection, although I do not know that they really removed anything and I am not sure it was cancer, possibly right thoracotomy. She is resting comfortably at this time. We are going to see if we can adjust some medications and have physical therapy evaluate. She has history of paroxysmal atrial fibrillation. She is on a beta lela. MEDICATIONS: Looking at her medications, she is on Depakote 250 mg at bedtime, Cymbalta 30 mg at bedtime, Crestor 20 mg at bedtime, aspirin 81 mg a day, hydrocodone 5 one q.6 hours p.r.n., and oxycodone also, she gets 5 mg q.4 hours p.r.n. pain. I want to see how we do today. She is getting ceftriaxone. The catheterized urine was greater than 100,000 gram negative rods. cc: Prashanth Gilliam MD
[2019-03-09] MEDS: TOPROL XL PO SCH (10:05)
[2019-03-09] MEDS: COSOPT OPHTH SOLN BOTH EYES SCH (10:05)
[2019-03-09] MEDS: PRINIVIL PO SCH ×2 (10:06→20:14)
[2019-03-09] MEDS: ASPIRIN PO SCH (10:06)
[2019-03-09] MEDS: PERCOCET-5 PO PRN ×3 (10:06→22:19)
[2019-03-09] MEDS: NORCO-5 PO PRN ×2 (13:58→22:04)
[2019-03-09] MEDS: DEPAKOTE PO SCH (20:14)
[2019-03-09] MEDS: ROCEPHIN 1 GM in NS 50 ML IV SCH (20:14)
[2019-03-09] MEDS: LUMIGAN 0.01% OPH SOLUTION BOTH EYES SCH (20:14)
[2019-03-09] MEDS: CYMBALTA PO SCH (20:14)
[2019-03-09] MEDS: CRESTOR PO SCH (20:14)
[2019-03-09] MEDS: ZOFRAN IV PRN (22:05)
[2019-03-10] MEDS: PERCOCET-5 PO PRN ×2 (04:18→22:23)
[2019-03-10] MEDS: COSOPT OPHTH SOLN BOTH EYES SCH (09:45)
[2019-03-10] MEDS: ASPIRIN PO SCH (09:46)
[2019-03-10] MEDS: PRINIVIL PO SCH ×2 (09:46→22:25)
[2019-03-10] MEDS: TOPROL XL PO SCH (09:46)
[2019-03-10] MEDS: NORCO-5 PO PRN (09:52)
--- NOTE | 2019-03-10 13:51 | PROGRESS NOTE ---
DATE: 03/10/2019 Ms. Neville is awake and alert. She seems to be pleasant. She is alert, she knows she is in the hospital, knows her name. I think she had a restless night but was eventually able to fall asleep. Temperature 97.8 degrees, pulse 69, respirations 17, blood pressure 168/60. Pupils are equal and round.Lungs: Are clear in all lung judd. Cardiovascular: Regular rhythm, rate without murmur or S3. Abdomen: Is soft. Skin: Warm and dry. ASSESSMENT AND PLAN: 1. The patient appears to come in with urinary tract infection, treating her with Rocephin 1 g daily. Urine culture is pending. 2. Frequent falls. Continue physical therapy. 3. Hypertension, blood pressure well controlled. 4. Hyperlipidemia. 5. History of cerebrovascular accident. 6. Atrial fibrillation. We are looking social service helping us work for usp placement. Review of her orders today she is on bimatoprost 0.01% both eyes at night, Depakote 250 mg at bedtime, Cymbalta 30 mg at bedtime, Crestor 20 mg at bedtime, aspirin 81 mg a day, dorzolamide and timolol eye drops both eyes daily, hydralazine we are giving p.r.n. elevated blood pressure 10 mg q.6 hours, hydrocodone APAP 5 mg q.6 hours, Prinivil 10 mg b.i.d., metoprolol 25 mg a day and she gets oxycodone 5 mg q.4 hours p.r.n. pain. LABORATORY: From the , white count was 10,050, hematocrit 41, platelet count 150,000. Chemistries. Sodium 141, potassium 4.1, chloride 100, BUN 17, creatinine 0.7. TSH is 6.18. cc: Prashanth Gilliam MD
[2019-03-10] MEDS: CRESTOR PO SCH (22:23)
[2019-03-10] MEDS: ROCEPHIN 1 GM in NS 50 ML IV SCH (22:23)
[2019-03-10] MEDS: DEPAKOTE PO SCH (22:25)
[2019-03-10] MEDS: CYMBALTA PO SCH (22:25)
[2019-03-10] MEDS: LUMIGAN 0.01% OPH SOLUTION BOTH EYES SCH (22:26)
[2019-03-11] MEDS: ASPIRIN PO SCH (10:33)
[2019-03-11] MEDS: TOPROL XL PO SCH (10:33)
[2019-03-11] MEDS: PRINIVIL PO SCH ×2 (10:33→22:28)
[2019-03-11] MEDS: COSOPT OPHTH SOLN BOTH EYES SCH (10:34)
--- NOTE | 2019-03-11 18:42 | PROGRESS NOTE ---
DATE: 03/11/2019 SUBJECTIVE: Patient has no major complaints. OBJECTIVE: Blood pressure is 91/68, heart rate of 80, respiratory rate of 20, temperature 97.4 degrees, 91% on room air.Cardiovascular: Regular rate and rhythm. Pulmonary: Bilateral breath sounds. Clear to auscultation. Gastrointestinal: Soft, nontender, nondistended. Bowel sounds are positive. LABORATORY DATA: No new data. Microbiology shows an Escherichia coli urinary tract infection that is sensitive to cefazolin. PROBLEM LIST: 1. Escherichia coli urinary tract infection with resistance. She is on Rocephin. We will discharge on Keflex. 2. Frequent falls and debilitation. We will continue physical therapy. Plan for rehab admission. 3. Atrial fibrillation. She is rate controlled. I get a sense she is not on any anticoagulation because of the falls. 4. Disposition. Anticipate discharge to rehab tomorrow, assuming all data is stable. cc: Joey Rodriguez MD
[2019-03-11] MEDS: PERCOCET-5 PO PRN (19:35)
[2019-03-11] MEDS: CRESTOR PO SCH (22:27)
[2019-03-11] MEDS: CYMBALTA PO SCH (22:27)
[2019-03-11] MEDS: ROCEPHIN 1 GM in NS 50 ML IV SCH (22:27)
[2019-03-11] MEDS: DEPAKOTE PO SCH (22:27)
[2019-03-11] MEDS: LUMIGAN 0.01% OPH SOLUTION BOTH EYES SCH (22:28)
[2019-03-11] MEDS: NORCO-5 PO PRN (22:31)
[2019-03-12] MEDS: PERCOCET-5 PO PRN ×2 (04:47→12:42)
[2019-03-12] MEDS: ASPIRIN PO SCH (08:40)
[2019-03-12] MEDS: COSOPT OPHTH SOLN BOTH EYES SCH (08:40)
[2019-03-12] MEDS: PRINIVIL PO SCH (08:40)
[2019-03-12] MEDS: TOPROL XL PO SCH (08:40)
--- NOTE | 2019-03-12 10:13 | DISCHARGE SUMMARY ---
ADMISSION DATE: 03/07/2019 DISCHARGE DATE: 03/12/2019 CONSULTATIONS: None. PERTINENT PROCEDURES: 1. Chest x-ray: Minimal right basilar scarring versus subsegmental atelectasis. No definite acute chest pathology. 2. Left elbow x-ray: No evidence of osseous abnormality. 3. Head CT: Stable, very chronic appearing white matter changes. No definite acute intracranial pathology. 4. Right knee x-ray: No evidence of acute abnormality. 5. Right lower extremity, no evidence of abnormality. 6. Hip, pelvis, no evidence of abnormality. 7. Right foot, healing subacute fracture involving the 3rd metatarsal that is also seen on previous study. No new fractures identified. 8. Lumbar spine, L3 vertebral body compression deformity of unknown acuity. 9. Thoracic spine, multiple midthoracic spine compression deformities of unknown acuity. DISCHARGE DIAGNOSES: 1. Escherichia coli urinary tract infection with resistance. She has been on intravenous Rocephin and will be discharged on Keflex. 2. Frequent falls and debilitation. She has been working with physical therapy and will be discharged to rehabilitation. 3. Atrial fibrillation, rate controlled. Not on any anticoagulation because of falls. 4. Hypertension, controlled. 5. Hyperlipidemia. 6. History of cerebrovascular accident. HOSPITAL COURSE: Briefly, Ms. Neville is an 79-year-old female who carries a past medical history of frequent falls, previous CVA with chronic left-sided weakness, hypertension, peripheral vascular disease, COPD, lung cancer with tumor resection, possibility of a right thoracotomy, who presented to the ED after having a fall. She was brushing her hair, tripped and fell. She did not hit her head. There was no loss of consciousness. All x-rays in the ED were essentially negative. Given her debilitation, she was admitted for observation. She worked with physical therapy. Their recommendation was rehab and possible transition to a [place] [facility] facility. VITAL SIGNS: At the time of her discharge, temperature is 97.7 degrees, heart rate 67, respirations 21, blood pressure 183/69, O2 is 95% on room air. DISCHARGE DIET: Regular. DISCHARGE MEDICATIONS: 1. Crestor 20 mg p.o. at bedtime. 2. Cymbalta 30 mg p.o. at bedtime. 3. Depakote 250 mg p.o. at bedtime. 4. Lumigan 2.5 mL ophthalmic at bedtime 1 drop to each eye every night before bed. 5. Tylenol 650 mg p.o. q.4 hours p.r.n. 6. Dorzolamide 1 drop ophthalmic both eyes daily. 7. [place] 5/325 one each p.o. q.6 hours p.r.n. 8. Aspirin 81 mg p.o. daily. 9. Keflex 500 mg p.o. b.i.d. 10. Toprol-XL 25 mg p.o. daily. FOLLOWUP: Ms. Neville is being discharged to [facility] to continue with physical therapy, possibly transition to long-term care at some point. She is take all medications as prescribed. She can return to the ED or call 911 for any worsening of symptoms. Dictated by JAVI Peña for Joey Rodriguez MD cc: MD Chani Anthony CRNP
[2019-03-12] MEDS ORDERED: FLU VACCINE IM ONE (10:34)
[2019-03-12 11:51] VITALS: BP 130/69
--- NOTE | 2019-03-13 11:00 | DISCHARGE SUMMARY ---
ADMISSION DATE: 03/07/2019 DISCHARGE DATE: 03/12/2019 ADDENDUM: She was examined on day of discharge. She is doing well. No major complaints. Vitals appeared to be stable. Physical exam is unremarkable. Regular rate and rhythm. Pulmonary clear to auscultation. She is afebrile. Plan is to discharge her to inpatient rehab today, and follow closely. She did have an E. Coli urinary tract infection. We will discharge her on Keflex for another 7 days. Rest of details per discharge summary per Elizabeth Bowen. TIME SPENT: 35 minute discharge. cc: Joey Rodriguez MD
== END 2019-03-12 14:33 | DRG 690 ==
LOC: SUPCPDRO → ED 13:34 → SUATTDRO 22:04 → 4N 22:04
PROVIDERS: ADMIT Internal Medicine; ATTEND Internal Medicine